=== PATIENT | female | born 1965 | race Caucasian/White ===

== ENCOUNTER 2016-08-11 18:17 | Inpatient (IN) | payer BC, OTHER ==
[~2016-08-11] VITALS: Ht 157.5 cm; Wt 131.0 kg
[~2016-08-11 18:17] MED LIST: BUPR-79 PO; CLC100 PO; INSPMPNVLG; LVNIS40 SQ; METF-384 PO; NVLGI SC; TRAZ1TAB52 PO
[2016-08-11] MEDS ORDERED: SODIUM CHLORIDE 0.9% 1000ML 1,000 ML IV STA (18:44)
[2016-08-11] MEDS ORDERED: KETOROLAC TROMETHAMINE 30 MG/ML VIAL IV STA (18:44)
[2016-08-11] MEDS ORDERED: ALBUT/IPRATROP 3MG/0.5MG NEB 3 ML VIAL INH STA (18:44)
[2016-08-11] MEDS ORDERED: HYDROCODONE/HOMATROPINE SYRUP 5MG/1.5MG 5ML UDP PO STA (18:44)
[2016-08-11] MEDS ORDERED: ONDANSETRON INJ 2 MG/ML 2 ML VIAL IV STA ×2 (18:44→20:28)
[2016-08-11] MEDS ORDERED: METHYLPREDNISOLONE 125 MG VIAL IV STA (18:44)
[2016-08-11 19:21] LABS: BASO % 1.4 %; BASO ABS # 0.06 K/uL (0-0.2); COMPLETE YES; EOS % 2.4 %; HEMATOCRIT 41.3 % (37-47); IG% 0.2 %; LYMPH ABS # 2.02 K/uL (1.2-3.4); MEAN CELL VOLUME 88.2 fL (80-100); MEAN CORPUSCULAR HGB CONC 35.1 g/dl (32-36); MEAN PLATELET VOLUME 10.2 fL (7.4-10.4); MONO % 13.3 %; NEUT % 34.7 %; PLATELET COUNT 252 K/uL (130-400); RED BLOOD COUNT 4.68 M/uL (4.2-5.4); WHITE BLOOD COUNT 4.21 K/uL (4.8-10.8)
[2016-08-11] MEDS ORDERED: ALBUT/IPRATROP 3MG/0.5MG NEB 3 ML VIAL INH ONE (19:30)
[2016-08-11 19:35] LABS: BUN/CREATININE RATIO 8.4 (10-20); CALCIUM 8.7 mg/dl (8.5-10.1); CREATININE 0.98 mg/dl (0.60-1.20); POTASSIUM 3.4 mmol/L (3.5-5.1)
[2016-08-11 19:39] LABS: ALB/GLOB RATIO 0.9 (0.9-2); CKMB/CK RATIO 0.6 (0-3.0)
[2016-08-11] MEDS ORDERED: OPTIRAY 320 IV PRN (19:45)
[2016-08-11] MEDS ORDERED: NVLG SC (20:18)
[2016-08-11] MEDS ORDERED: DIPH-437 PO (20:19)
--- NOTE | 2016-08-11 20:20 | DIAGNOSTIC IMAGING REPORT ---
CHEST 2 VIEWS ROUTINE CLINICAL HISTORY: Respiratory distress. Cough. COMPARISON STUDY: Chest radiograph August 05, 2011. FINDINGS: Lung volumes are normal. There is no consolidation. There is no pneumothorax or pleural effusion. Cardiac size is normal. Mediastinal contours are normal. The appearance of the chest is unchanged. IMPRESSION: No acute cardiopulmonary findings. Electronically signed by: Vishal Zavala M.D. 08/11/2016 8:19 PM Dictated Date/Time: 08/11/2016 8:18 PM
[2016-08-11] MEDS ORDERED: MoRPHine SULFATE 2 MG/ML CARP IV STA (20:28)
--- NOTE | 2016-08-11 21:31 | DIAGNOSTIC IMAGING REPORT ---
CT ANGIOGRAPHY OF THE CHEST, PULMONARY EMBOLUS PROTOCOL CLINICAL HISTORY: Chest pain, shortness of breath, tachycardia and elevated d-dimer. COMPARISON STUDY: Chest CT October 11, 2010. TECHNIQUE: Following IV administration of 95 mL of [id number]-320, helical axial images of the chest were obtained utilizing the pulmonary embolus protocol. Maximal intensity projections and sagittal and coronal reformats were viewed on an independent 3D workstation. IV contrast was administered without complication. CT DOSE: 634.84 mGy.cm FINDINGS: No pulmonary emboli are identified although the segmental and subsegmental pulmonary arteries are suboptimally assessed due to respiratory motion. The heart is mildly enlarged. There is no pericardial effusion. There is no thoracic aortic dissection. There are prominent mediastinal lymph nodes. None are pathologically enlarged. The central airways are patent. No pneumothorax or pleural effusion is present. There is no consolidation. There are mild groundglass opacities with mild mosaic attenuation. The bony thorax and upper abdomen are unremarkable. IMPRESSION: 1. No pulmonary emboli identified although the segmental and subsegmental pulmonary arteries are suboptimally assessed due to respiratory motion. 2. Mild cardiomegaly. 3. Mild groundglass opacities with mosaic attenuation which may reflect air trapping. No consolidation to suggest pneumonia. Electronically signed by: Vishal Zavala M.D. 08/11/2016 9:30 PM Dictated Date/Time: 08/11/2016 9:24 PM
--- NOTE | 2016-08-11 21:45 | EMERGENCY ROOM VISIT NOTE ---
ED Visit Note First contact with patient: 21:45 I have personally seen and evaluated the patient with the physician metal moulder's assistant. I agree with the diagnostic/management decisions and have personally been involved in these decisions and agree with the diagnosis.
[2016-08-11] MEDS ORDERED: PHARMACY GLYCEMIC MGMT CONSULT PRN (22:38)
[2016-08-11] MEDS ORDERED: POTASSIUM CHLORIDE 10 MEQ TABCR PO STA (22:38)
[2016-08-11] MEDS ORDERED: AZITHROMYCIN 250 MG TAB PO STA (22:40)
--- NOTE | 2016-08-11 22:41 | History and Physical ---
History & Physical Date & Time of Service: Aug 11, 2016 at 22:42 Chief Complaint: SOB Primary Care Physician: Jama Torres M.D. History of Present Illness Source: patient Ms. Cisneros is a 51-year-old female with past medical hx of DM insulin dependent , on insulin pump . Asthma , COPD , depression came to ED with complaining of shortness of breath. pt has been having cough like symptom with Upper URI -associated with runny nose, low grade fever , headache had diffuse muscle ache saw her PCP on 08/07/16 at [facility] -ws started on Z Pack for possible Bronchics ; ordered for PRN Inhaler for the last 2 days -her cough was progressively worse to the point she had nausea /vomiting very SOB , Dyspneic with minimum activity pt finished course of Z pack with no improvement of symptom developed persistent dry cough causing bilateral rib pain and midsternal chest pain She describes this as sharp worse with taking deep breath in the ED pt was found to be hypoxic in room Air 88% improved to 95 % with 2 L 02 ( pt is not on home o2 ) CT chest negative for PE ; Mild ground glass opacities with mosaic attenuation which may reflect air trapping. No consolidation to suggest pneumonia. Influenza B flu swab positive Past Medical/Surgical History Medical Problems: (1) Diab Carla Wo Compl, Type Ii Or Unspec Type, Not Uncntrld Status: Chronic (2) Diverticulitis Colon (W/O Ment Of Hemorrhage) Status: Resolved (3) Intestinal Obstruct Nec Status: Resolved (4) Malignant Johnnie Colon Nos Status: Resolved Family History Cancer -Aunt breast cancer Diabetes Brother / Father /Mother / CAD: Brother massive [place]/ Father [place] H Father Lung Disorder /Emphysema Social History Smoking Status: Former Smoker Marital Status: Housing status: lives with family Occupational Status: employed Immunizations History of Influenza Vaccine: N/A Influenza Vaccine Date: May 07, 2008 History of Tetanus Vaccine?: Yes History of Pneumococcal: Yes Pneumococcal Date: May 28, 2010 History of Hepatitis B Vaccine: Yes Multi-Drug Resistant Organisms History of MDRO: No Allergies Coded Allergies: NO KNOWN DRUG ALLERGIES (Verified Allergy, Mild, ., 11/21/15) Nickel (Verified Allergy, Mild, RASH, REDNESS, ITCHY, 11/21/15) Home Medications Scheduled Bupropion (Wellbutrin Sr), 150 MG PO BID Insulin Aspart (novoLOG INSULIN PUMP ), 1 EA N/A UD Metformin Hcl (Glucophage), 1,000 MG PO BID Trazodone Hcl (Desyrel), 150 MG PO HS Scheduled PRN Acetaminophen/Diphenhydramine (Tylenol Pm), 1 TAB PO HS PRN for Sleep Miscellaneous Medications Insulin Aspart (Novolog), SC Review of Systems Constitutional: + chills, + fatigue, + fever, + weakness Eyes: + eye pain Respiratory: + cough, + dyspnea at rest, + dyspnea on exertion, + shortness of breath, + sputum, + wheezing Cardiovascular: + chest pain Abdomen: + diarrhea, + nausea Musculoskeletal: + joint pain, + muscle pain Genitourinary - Female: No dysmenorrhea, No dysuria, No hematuria, No menorrhagia, No metrorrhagia, No , No problem reported, No rash, No urinary frequency, No urinary incontinence, No urinary retention, No urinary urgency, No vaginal bleeding, No vaginal discharge, No vaginal itching, No vulvodynia Neurologic: + vertigo, + weakness Endocrine: + fatigue Physical Exam Vital Signs Date Time Temp Pulse Resp B/P Pulse Ox O2 Delivery O2 Flow Rate FiO2 08/11/16 22:38 97 21 155/77 97 08/11/16 21:25 97 Nasal Cannula 2.0 08/11/16 21:22 96 21 155/77 87 Room Air 08/11/16 19:51 90 23 157/70 100 Nebulizer 08/11/16 19:14 86 08/11/16 18:22 36.9 104 26 140/73 98 Room Air General Appearance: no apparent distress Eyes: normal inspection, PERRL, EOMI, sclerae normal Neck: supple, no carotid bruits, trachea midline Respiratory/Chest: chest non-tender, + respiratory distress, + decreased breath sounds Cardiovascular: regular rate, rhythm, no edema Abdomen/GI: normal bowel sounds, non tender, soft Extremities/Musculoskelatal: normal inspection, no calf tenderness, normal capillary refill, no pedal edema Neurologic/Psych: no motor/sensory deficits, alert, normal mood/affect, oriented x 3 Skin: normal color, warm/dry, no rash Lymphatic: no adenopathy Diagnostics Laboratory Results Results Past 24 Hours Test 08/11/16 19:00 08/11/16 19:12 08/11/16 22:25 Range/Units White Blood Count 4.21 4.8-10.8 K/uL Red Blood Count 4.68 4.2-5.4 M/uL Hemoglobin 14.5 12.0-16.0 g/dL Hematocrit 41.3 37-47 % Mean Corpuscular Volume 88.2 80-100 fL Mean Corpuscular Hemoglobin 31.0 25-34 pg Mean Corpuscular Hemoglobin Concent 35.1 32-36 g/dl Platelet Count 252 130-400 K/uL Mean Platelet Volume 10.2 7.4-10.4 fL Neutrophils (%) (Auto) 34.7 % Lymphocytes (%) (Auto) 48.0 % Monocytes (%) (Auto) 13.3 % Eosinophils (%) (Auto) 2.4 % Basophils (%) (Auto) 1.4 % Neutrophils # (Auto) 1.46 1.4-6.5 K/uL Lymphocytes # (Auto) 2.02 1.2-3.4 K/uL Monocytes # (Auto) 0.56 0.11-0.59 K/uL Eosinophils # (Auto) 0.10 0-0.5 K/uL Basophils # (Auto) 0.06 0-0.2 K/uL RDW Standard Deviation 41.3 36.4-46.3 fL RDW Coefficient of Variation 12.9 11.5-14.5 % Immature Granulocyte % (Auto) 0.2 % Immature Granulocyte # (Auto) 0.01 0.00-0.02 K/uL Sodium Level 137 136-145 mmol/L Potassium Level 3.4 3.5-5.1 mmol/L Chloride Level 100 98-107 mmol/L Carbon Dioxide Level 22 21-32 mmol/L Anion Gap 15.0 3-11 mmol/L Blood Urea Nitrogen 8 7-18 mg/dl Creatinine 0.98 0.60-1.20 mg/dl Est Creatinine Clear Calc Drug Dose 89.0 ml/min Estimated GFR () 78.0 Estimated GFR (Non- 67.3 BUN/Creatinine Ratio 8.4 10-20 Random Glucose 235 70-99 mg/dl Calcium Level 8.7 8.5-10.1 mg/dl Total Bilirubin 0.6 0.2-1 mg/dl Aspartate Amino Transf (AST/SGOT) 35 15-37 U/L Alanine Aminotransferase (ALT/SGPT) 52 12-78 U/L Alkaline Phosphatase 181 45-117 U/L Total Creatine Kinase 165 26-192 U/L Creatine Kinase MB 1.0 0.5-3.6 ng/ml Creatine Kinase MB Ratio 0.6 0-3.0 Total Protein 7.6 6.4-8.2 gm/dl Albumin 3.6 3.4-5.0 gm/dl Globulin 4.0 2.5-4.0 gm/dl Albumin/Globulin Ratio 0.9 0.9-2 Bedside D-Dimer > 450 0-450 ng/mlFEU Bedside Troponin I 0.010 0-0.045 ng/ml Diagnostic Radiology CT ANGIOGRAPHY OF THE CHEST, PULMONARY EMBOLUS PROTOCOL CLINICAL HISTORY: Chest pain, shortness of breath, tachycardia and elevated d-dimer. IMPRESSION: 1. No pulmonary emboli identified although the segmental and subsegmental pulmonary arteries are suboptimally assessed due to respiratory motion. 2. Mild cardiomegaly. 3. Mild groundglass opacities with mosaic attenuation which may reflect air trapping. No consolidation to suggest pneumonia. CHEST 2 VIEWS ROUTINE CLINICAL HISTORY: Respiratory distress. Cough. COMPARISON STUDY: Chest radiograph August 05, 2011. FINDINGS: Lung volumes are normal. There is no consolidation. There is no pneumothorax or pleural effusion. Cardiac size is normal. Mediastinal contours are normal. The appearance of the chest is unchanged. IMPRESSION: No acute cardiopulmonary findings. CXR normal Impression Assessment and Plan ACUTE RESPIRATORY FAILURE : presented with no nonproductive cough , pleuritic chest pain , Hypoxia due to influenza B /URI /bronchitis no Pulmonary embolism noted in CT chest ground glass opacity on base supportive care with 02 supplementation PRN INH /Neb tx empiric abx with Doxycycline ( treated with Z pack as out pt ) INFLUENZA B : pt did not receive Flu shot this year started on Tamiflu complete 5 days course Droplet precaution TYPE 2 DM INSULIN DEPENDENT : on insulin pump Hb A1c 9 on 06/21/2016 BSG > 300 due to above -infection /Flu insulin Pump D/miah ; hold Metformin ordered for Basal Lantus /insulin SSI pharmacy consulted for glycemic control repeat Hb A1c ordered in AM lab DEPRESSION : cont Trazodone HS FULL CODE DVT PROPHYLAXIS : sub q heparin DISPOSITION ; . to home when medically stable Medicine follow up with Dr Torres Level of Care Telemetry Resuscitation Status FULL RESUSCITATION VTE Prophylaxis VTE Risk Assessment Done? Y/N: Yes Risk Level: Moderate Given or contraindicated: Unfractionated heparin SQ Note In my clinical judgment this beneficiary meets acute admission criteria, established by [facility], that includes being hospitalized through two midnights. Additional Copies To Jama Torres M.D.
[2016-08-11] MEDS ORDERED: ACETAMINOPHEN 325 MG TAB PO PRN (22:45)
[2016-08-11] MEDS ORDERED: POLYETHYLENE (MIRALAX) 17 GM PACK PO PRN (22:45)
[2016-08-11] MEDS ORDERED: GLUCAGON FOR INJ 1 MG VIAL SQ PRN (22:45)
[2016-08-11] MEDS ORDERED: GLUCOSE 40% GEL 15 GM TUBE PO PRN (22:45)
[2016-08-11] MEDS ORDERED: GLUCOSE 10 TABS/TUBE PO PRN (22:45)
[2016-08-11] MEDS ORDERED: ACETAMINOPHEN 500 MG TAB PO PRN (22:45)
[2016-08-11] MEDS ORDERED: ALUMINUM/MAGNESIUM/SIMETH (MAALOX MAX) 30 ML UDC PO PRN (22:45)
[2016-08-11] MEDS ORDERED: INSULIN GLARGINE SOLOSTAR 100 UNITS/ML 3 ML PEN SC SCH (22:45)
[2016-08-11] MEDS ORDERED: ONDANSETRON INJ 2 MG/ML 2 ML VIAL IV PRN (22:45)
[2016-08-11] MEDS ORDERED: DEXTROSE 50% 50 ML SYR IV PRN (22:45)
[2016-08-11] MEDS ORDERED: ZOLPIDEM TARTRATE 5 MG TAB PO PRN (22:45)
[2016-08-11] MEDS ORDERED: MAGNESIUM HYDROXIDE SUSP 30 ML UDC PO PRN (22:45)
[2016-08-11] MEDS ORDERED: CEFTRIAXONE SOD INJ 1 GM in DEXTROSE 5% ADD-VANTAGE 50ML 50 ML IV STA (22:49)
[2016-08-11] MEDS: SODIUM CHLORIDE 0.9% 1000ML 1,000 ML IV SCH (22:58)
[2016-08-11] MEDS ORDERED: LEVALBUTEROL 1.25MG/0.5ML NEB INH PRN (23:00)
[2016-08-11] MEDS ORDERED: IPRATROPIUM BROMIDE NEB SOLN 0.02% 2.5 ML VIAL INH PRN (23:00)
[2016-08-11] MEDS ORDERED: OSELTAMIVIR PHOSPHATE 75 MG CAP PO STA (23:54)
[2016-08-11] MEDS ORDERED: INSULIN HUMAN REGULAR PER UNIT 10 UNITS in SYRINGE 9.9 ML IV STA (23:54)
[2016-08-12] VITALS (15 sets, daily range): BP systolic 116–147; BP diastolic 60–85; PULSE 71–96; TEMP 36.4–37; O2SAT 94–99; Ht 157.5 cm; Wt 131.0 kg
[2016-08-12] MEDS ORDERED: LEVALBUTEROL/IPRATROPIUM NEB INH SCH
[2016-08-12] MEDS: LEVALBUTEROL 1.25MG/0.5ML NEB INH SCH ×7 (00:04→23:32)
[2016-08-12] MEDS: IPRATROPIUM BROMIDE NEB SOLN 0.02% 2.5 ML VIAL INH SCH ×7 (00:04→23:32)
[2016-08-12 00:56] LABS: MANUAL MICROSCOPIC REQUIRED? NO; URINE APPEARANCE CLEAR (CLEAR); URINE BILIRUBIN NEG (NEG); URINE COLOR YELLOW; URINE NITRITE NEG (NEG); URINE PH 5.5 (4.5-7.5); URINE SPECIFIC GRAVITY <= 1.005 (1.000-1.030); UROBILINOGEN NEG (NEG)
[2016-08-12] MEDS: BENZONATATE 100MG CAP PO PRN ×2 (00:59→08:15)
[2016-08-12 01:05] LABS: REVIEW REQ? NO
--- NOTE | 2016-08-12 01:58 | EMERGENCY ROOM VISIT NOTE ---
ED Visit Note First contact with patient: 18:29 Chief Complaint: Shortness of breath. History of Present Illness: Ms. Cisneros is a 51-year-old white female who ambulates into the ED accompanied by her complaining of shortness of breath. Historically patient has no significant pulmonary diseases does have a history of colon cancer. Patient reports 2-3 weeks ago she started having what she describes as mild upper respiratory tract symptoms with a runny nose and a mildly productive cough. She reports the symptoms have been using progressively worse. She was seen at her PCPs office 5-6 days ago and was diagnosed with bronchitis. She was placed on Zithromax for antibiotic coverage and was given an inhaler for shortness of breath, but no inhaler spacer. Patient reports over the last 2 days her cough has been getting worse and she is now constant shortness of breath. She has finished her antibiotics and is been using her inhaler as prescribed without relief of her discomfort. Associated with her cough she reports she is experiencing bilateral lateral rib pain and midsternal chest pain. She describes this as sharp. She rates her discomfort 5/10. The pain is nonradiating. The pain increases with cough and palpation. She has not identified any alleviating factors related to the pain. She reports she has not had any medications for pain prior to arrival at the hospital. Associated with her shortness of breath and cough she is also complaining of thoracic back pain, wheezing and fever of 99F. She denies headache, dizziness, lightheadedness, neck pain/stiffness, sore throat, difficulty swallowing, hemoptysis, palpitations, orthopnea, dependent edema, previous clots, claudication, cramping, recent surgery/inactivity/ extended travel. Review of Systems: As noted above in history of present illness. All body systems were reviewed and found to be negative as noted above. Past Medical History: (1) Diab Carla Wo Compl, Type Ii Or Unspec Type, Not Uncntrld (2) Diverticulitis Colon (W/O Ment Of Hemorrhage) (3) Intestinal Obstruct Nec (4) Malignant Johnnie Colon Nos (5) SOB (shortness of breath) Surgical Problems: (1) Status post arthroscopy of left knee Current Medications: Glucophage, insulin, Wellbutrin, Desyrel and Tylenol PM. Allergies to Medications: Patient denies. Social History: Patient is currently employed; she feels safe in her home environment; she is a former smoker but stopped approximately 10 years ago; she admits to rare social use. Physical Examination: Vital Signs: Date Time Temp Pulse Resp B/P Pulse Ox O2 Delivery O2 Flow Rate FiO2 08/11/16 21:25 97 Nasal Cannula 2.0 08/11/16 21:22 96 21 155/77 87 Room Air 08/11/16 19:51 90 23 157/70 100 Nebulizer 08/11/16 19:14 86 08/11/16 18:22 36.9 104 26 140/73 98 Room Air GENERAL: 51-year-old female in moderate distress due to symptoms, nontoxic- appearing, afebrile and hemodynamically stable. NEUROLOGICAL: Awake, alert and oriented to person, place and time. Answering questions appropriately and following commands. Normal gait. Good hand eye coordination. No focal motor sensory deficits. SKIN: Warm, dry and pink. No soft tissue eruptions or trauma noted. HEENT: Atraumatic and normocephalic. PERRLA. Sclera white and conjunctiva pink. No drainage from naris. Oral cavity moist and pink. Pharynx is nonerythematous or edematous. Speech normal. No lymphadenopathy. Trachea midline. No jugular venous distention. BACK: No tenderness over the bony spine. No CVA tenderness. THORAX: Lungs sounds are decreased in all darling with barely audible wheezing in all darling. Symmetrical chest wall. No rales or rhonchi. Moderate tenderness throughout the anterior and bilateral lateral ribs without bony deformity, bony crepitus or subcutaneous air. HEART: Tachycardic rate and rhythm. No gallops, rubs or murmurs are appreciated. ABDOMEN: Obese, soft and nontender. Positive bowel sounds in all quadrants. No guarding, rigidity or organomegaly. EXTREMITIES: Moves all extremities well on command and with purpose. All distal neurovascular statuses are intact and equal bilaterally. No calf tenderness or cords. Trace dependent edema. ED Course: Patient is assessed as noted above. Laboratory Tests Test 08/11/16 19:00 08/11/16 19:12 Range/Units White Blood Count 4.21 4.8-10.8 K/uL Red Blood Count 4.68 4.2-5.4 M/uL Hemoglobin 14.5 12.0-16.0 g/dL Hematocrit 41.3 37-47 % Mean Corpuscular Volume 88.2 80-100 fL Mean Corpuscular Hemoglobin 31.0 25-34 pg Mean Corpuscular Hemoglobin Concent 35.1 32-36 g/dl Platelet Count 252 130-400 K/uL Mean Platelet Volume 10.2 7.4-10.4 fL Neutrophils (%) (Auto) 34.7 % Lymphocytes (%) (Auto) 48.0 % Monocytes (%) (Auto) 13.3 % Eosinophils (%) (Auto) 2.4 % Basophils (%) (Auto) 1.4 % Neutrophils # (Auto) 1.46 1.4-6.5 K/uL Lymphocytes # (Auto) 2.02 1.2-3.4 K/uL Monocytes # (Auto) 0.56 0.11-0.59 K/uL Eosinophils # (Auto) 0.10 0-0.5 K/uL Basophils # (Auto) 0.06 0-0.2 K/uL RDW Standard Deviation 41.3 36.4-46.3 fL RDW Coefficient of Variation 12.9 11.5-14.5 % Immature Granulocyte % (Auto) 0.2 % Immature Granulocyte # (Auto) 0.01 0.00-0.02 K/uL Sodium Level 137 136-145 mmol/L Potassium Level 3.4 3.5-5.1 mmol/L Chloride Level 100 98-107 mmol/L Carbon Dioxide Level 22 21-32 mmol/L Anion Gap 15.0 3-11 mmol/L Blood Urea Nitrogen 8 7-18 mg/dl Creatinine 0.98 0.60-1.20 mg/dl Est Creatinine Clear Calc Drug Dose 89.0 ml/min Estimated GFR () 78.0 Estimated GFR (Non- 67.3 BUN/Creatinine Ratio 8.4 10-20 Random Glucose 235 70-99 mg/dl Calcium Level 8.7 8.5-10.1 mg/dl Total Bilirubin 0.6 0.2-1 mg/dl Aspartate Amino Transf (AST/SGOT) 35 15-37 U/L Alanine Aminotransferase (ALT/SGPT) 52 12-78 U/L Alkaline Phosphatase 181 45-117 U/L Total Creatine Kinase 165 26-192 U/L Creatine Kinase MB 1.0 0.5-3.6 ng/ml Creatine Kinase MB Ratio 0.6 0-3.0 Total Protein 7.6 6.4-8.2 gm/dl Albumin 3.6 3.4-5.0 gm/dl Globulin 4.0 2.5-4.0 gm/dl Albumin/Globulin Ratio 0.9 0.9-2 Bedside D-Dimer > 450 0-450 ng/mlFEU Bedside Troponin I 0.010 0-0.045 ng/ml EKG: Was read by myself and reviewed with Dr. Carpenter; shows normal sinus rhythm with ventricular rate of 94 bpm. Normal axis, intervals and complexes. No acute ST changes indicating ischemia, injury or infarction. This was compared to previous from October 2015 and no acute changes were noted. Chest X-Rays: Were read by myself and the radiologist and shows no acute infiltrates, effusions or pneumothorax. Normal heart silhouette and bony anatomy. This was compared to previous from July 2011 in no acute changes were noted. Chest CTA: Was reviewed by myself and read by the radiologist showing no pulmonary emboli noted, mild cardiomegaly and mild groundglass opacities which may reflect air-trapping. Patient initially received an albuterol/Atrovent nebulizer breathing treatment, was hydrated with normal saline, received 125 mg of Solu-Medrol IV, received 30 mg of Toradol IV for pain, 4 mg of Zofran IV and 10 mL of Hycodan cough syrup. After her breathing treatment she was reassessed and showed improved air movement but still has significant inspiratory and expiratory wheezing in all darling. Patient was then treated with a one hour albuterol/Atrovent nebulizer treatment. She was reassessed after her treatment and subjectively reported she was feeling short of breath. I did listen to her lungs sounds and although she had improved movement she was still tight but no wheezing was no longer heard. Patient was given 2 mg of morphine IV and an additional 4 mg of Zofran for worsening pain and nausea. Patient was reassessed multiple times during her stay in the emergency department. She was observed to be having oxygen saturations of 88-91% and was placed on 2 L of oxygen via nasal cannula; the 2 L of oxygen increased her saturations to 96%. Patient's case was reviewed with Dr. Carpenter; we agreed on diagnostic approach, treatment, disposition and plan. Patient's case was consulted with case management and Dr. Pastor, hospitalist; for medical observation/admission. Patient was educated about tonight's findings. Clinical Impression: Acute bronchitis. Positive for influenza B. Decision-Making: Initially my differential diagnosis I considered pneumonia, bronchitis, pneumothorax, pneumonia, pulmonary embolism, pericarditis and other causes. Disposition and Plan: Patient be brought in the hospital by Dr. Pastor; please see her notes and orders for final disposition and plan.
[2016-08-12] MEDS ORDERED: INSULIN REGULAR 5 UNITS in SYRINGE 4.95 ML IV SCH (03:30)
[2016-08-12] MEDS: GUAIFENESIN/CODEINE 100MG/10MG 5ML UDC PO PRN ×3 (03:46→18:29)
[2016-08-12] MEDS ORDERED: INSULIN HUMAN REGULAR SC SCH ×2 (04:00→06:30)
[2016-08-12] MEDS ORDERED: INSULIN ASPART 100 UNITS/ML 3 ML PEN SC SCH (04:00)
[2016-08-12] MEDS ORDERED: INSULIN REGULAR 4 UNITS in SYRINGE 3.96 ML IV SCH (05:00)
[2016-08-12 05:49] LABS: MEAN CELL VOLUME 86.5 fL (80-100); MEAN CORPUSCULAR HEMOGLOBIN 30.3 pg (25-34); MEAN PLATELET VOLUME 9.6 fL (7.4-10.4); PLATELET COUNT 222 K/uL (130-400); RED BLOOD COUNT 4.16 M/uL (4.2-5.4); WHITE BLOOD COUNT 5.59 K/uL (4.8-10.8)
[2016-08-12 06:00] LABS: PROTHROMBIN TIME (PATIENT) 10.2 SECONDS (9.0-12.0)
[2016-08-12 06:22] LABS: BUN/CREATININE RATIO 13.1 (10-20); CALCIUM 8.1 mg/dl (8.5-10.1); CREATININE 0.74 mg/dl (0.60-1.20); MAGNESIUM 1.8 mg/dl (1.8-2.4); POTASSIUM 3.8 mmol/L (3.5-5.1)
[2016-08-12 06:26] LABS: ESTIMATED AVERAGE GLUCOSE 235 mg/dl; HA1C FLAG Normal (Normal)
[2016-08-12 06:33] LABS: BETA-HYDROXYBUTYRATE 2.17 mg/dL (0.2-2.81)
[2016-08-12] MEDS: SODIUM CHLORIDE 0.9% 1000ML 1,000 ML IV SCH ×2 (08:13→19:39)
[2016-08-12] MEDS: DOXYCYCLINE HYCLATE 100 MG CAP PO SCH ×2 (08:14→19:43)
[2016-08-12] MEDS: OSELTAMIVIR PHOSPHATE 75 MG CAP PO SCH ×2 (08:14→19:42)
[2016-08-12] MEDS: BuPROPion SR 150 MG TABCR PO SCH ×2 (08:16→19:43)
[2016-08-12] MEDS: INSULIN ASPART 100 UNITS/ML 3 ML PEN SC SCH ×5 (08:22→23:49)
[2016-08-12] MEDS: HEPARIN SOD 5000 UNIT/0.5 ML CARP SQ SCH ×2 (08:23→21:01)
[2016-08-12] MEDS ORDERED: INSULIN GLARGINE SOLOSTAR 100 UNITS/ML 3 ML PEN SC SCH (09:00)
--- NOTE | 2016-08-12 10:13 | Pharmacy Progress Note ---
Glycemic Control Intl Consult Date of Service Aug 12, 2016. Scope Glycemic Pharmacist consulted by Dr Pastor on 08/12/16 for glycemic control and to write orders per [facility] inpatient glycemic control protocol Objective Weight (Kilograms): 128.500 Accuchecks BSG (last 24hrs): Test 08/11/16 19:00 08/11/16 23:32 08/12/16 03:05 08/12/16 04:32 Random Glucose 235 mg/dl (70-99) Bedside Glucose 409 mg/dl (70-90) 392 mg/dl (70-90) 355 mg/dl (70-90) Test 08/12/16 05:30 08/12/16 07:42 Random Glucose 332 mg/dl (70-99) Bedside Glucose 295 mg/dl (70-90) Laboratory Data (last 24hrs) Test 08/11/16 19:00 08/12/16 05:30 Anion Gap 15.0 mmol/L 12.0 mmol/L BUN/Creatinine Ratio 8.4 13.1 Blood Urea Nitrogen 8 mg/dl 10 mg/dl Creatinine 0.98 mg/dl 0.74 mg/dl Potassium Level 3.4 mmol/L 3.8 mmol/L Sodium Level 137 mmol/L 138 mmol/L White Blood Count 4.21 K/uL 5.59 K/uL Red Blood Count 4.68 M/uL Hemoglobin 14.5 g/dL Hematocrit 41.3 % Mean Corpuscular Volume 88.2 fL Mean Corpuscular Hemoglobin 31.0 pg Mean Corpuscular Hemoglobin Concent 35.1 g/dl Platelet Count 252 K/uL Mean Platelet Volume 10.2 fL Neutrophils (%) (Auto) 34.7 % Lymphocytes (%) (Auto) 48.0 % Monocytes (%) (Auto) 13.3 % Eosinophils (%) (Auto) 2.4 % Basophils (%) (Auto) 1.4 % Neutrophils # (Auto) 1.46 K/uL Lymphocytes # (Auto) 2.02 K/uL Monocytes # (Auto) 0.56 K/uL Eosinophils # (Auto) 0.10 K/uL Basophils # (Auto) 0.06 K/uL Hemoglobin A1c 9.8 % HbA1c Test 08/12/16 05:30 Hemoglobin A1c 9.8 % (4.5-5.6) H Recent Pertinent Medications Outpatient Anti-diabetic Regimen: * Metformin 1,000mg PO BID * NovoLog Insulin Pump --> up to 40 units/day, although patient has been non- compliant with follow up to [facility] diabetes clinic The patient is currently receiving: * Basal insulin: Lantus 10 units every 12 hours * Correctional Insulin: Novolog Correction per scale ACHS Goal Range: Low 100 mg/dL - High 140 mg/dL Correction Factor: 30 mg/dL/unit * Prandial insulin: Per carb ratio of 1 unit per 15 grams CHO consumed * Oral Agents: On hold for admission Risk Factors for Insulin Resistance: * Steroids: SoluMedrol 125mg IV x 1 in ED * Infection * Diet * Baseline insulin resistance per elevated A1c Assessment & Plan ASSESSMENT: * 51yo T2DM female with poorly controlled diabetes per recent A1c = 9.8% today. Poor outpatient control may be d/t lack of follow up with [facility] diabetes clinic. Pt not returning calls or providing meter BSG readings. * Outpatient insulin regimen/pump held on admission and pt changed to SQ basal bolus insulin regimen for easier titration for acute hyperglycemia. * Per outpatient records, pt uses up to 40 units of insulin per day + metformin. Pt with additional stressors (steroids, infection, etc) therefore, will use weight based dosing and titrate according to BSG trends. * Pt with SEVERE hyperglycemia overnight d/t Solumedrol given in ED --> was treated with IV regular insulin boluses and starting basal/bolus insulin regimen. * BSGs [phone] since last evening * AM fasting BSG elevated this morning @ 295mg/dl --> will increase basal insulin * Will tighten CF/CR to weight based dosing parameters. * ADA & AACE recommend a goal blood sugar range 140-180 mg/dl for the majority of critically ill & non-critically ill patients. However, more stringent targets may be selected in individual cases. Will utilize more stringent goal of 110-140mg/dl based on patient age. PLAN FOR INPATIENT GLYCEMIC CONTROL: * Hold outpatient oral diabetes medications (metformin) + insulin pump & use SQ basal bolus insulin regimen. * Increase Basal insulin with Lantus - dosing based on BSG * If BSG 120mg/dl or below --> give Lantus 15 units * If BSG 121-179mg/dl ---> give Lantus 20 units * If BSG 180mg/dl or above --> give Lantus 25 units * Tighten Correctional Insulin with NOVOLOG per scale ACHS or Q6hrs while NPO. Additional checks + coverage at 0000 & 0400 for RTC hyperglycemia * Goal Range: Low 110 mg/dL - High 140 mg/dL * Correction Factor: 15 mg/dL/unit * Nutritional / Prandial insulin per carb ratio of 1 unit per 5 grams CHO consumed * Please note that the plan above was derived based on current level of insulin resistance and hospital stress. These recommendations are appropriate for inpatient admission only. Plan of care upon discharge will need to be reassessed to avoid potential outpatient hypo/hyperglycemia. Thank you.
--- NOTE | 2016-08-12 11:09 | Progress Note ---
Internal Med Progress Note Date of Service: Aug 12, 2016. Provider Documentation: SUBJECTIVE: The patient was seen and examined Feels a lot better Has ongoing cough OBJECTIVE: Vital Signs-as noted below Exam: General-NO distress at rest Eyes-normal ENT-normal Neck-Supple Lungs-Minimal wheezing ,minimal crackles at the bases Heart-Regular,no murmur appreciated Abdomen-Benign,no masses,bowel sound present Extremities-No edema Neuro-AAOx3 Lab data as noted below. ASSESSMENT & PLAN: ACUTE RESPIRATORY FAILURE : presented with no nonproductive cough , pleuritic chest pain Noted to have Hypoxemia 87% RA,Tachypnea -26,use of accessory muscles of respiration Positive ofr influenza B /URI /bronchitis No Pulmonary embolism noted in CT chest Has ground glass opacity on base Started on Tamiflu and Doxycycline Getting Nebs and Bronchodilators Clinically better INFLUENZA B : pt did not receive Flu shot this year started on Tamiflu complete 5 days course Droplet precaution CXR in AM TYPE 2 DM INSULIN DEPENDENT : Has been on insulin pump Hb A1c 9 on 06/21/2016 BSG > 300 due to above -infection /Flu Hold Metformin Ordered for Basal Lantus /insulin SSI Pharmacy consulted for glycemic control DEPRESSION : cont Trazodone HS FULL CODE DVT PROPHYLAXIS : sub q heparin DISPOSITION ; . to home when medically stable Medicine follow up with Dr Torres Vital Signs: Date Time Temp Pulse Resp B/P Pulse Ox O2 Delivery O2 Flow Rate FiO2 08/12/16 08:00 99 Nasal Cannula 2.0 08/12/16 07:25 36.5 71 18 116/60 99 08/12/16 04:00 Nasal Cannula 2.0 08/12/16 03:47 36.4 88 18 127/76 97 Nasal Cannula 2.0 08/12/16 03:42 77 18 98 Nasal Cannula 2.0 08/12/16 00:04 96 18 94 Nasal Cannula 2.0 08/12/16 00:00 37.0 89 18 133/76 96 Nasal Cannula 2.0 08/11/16 22:38 97 21 155/77 97 08/11/16 21:25 97 Nasal Cannula 2.0 08/11/16 21:22 96 21 155/77 87 Room Air 08/11/16 19:51 90 23 157/70 100 Nebulizer 08/11/16 19:14 86 08/11/16 18:22 36.9 104 26 140/73 98 Room Air Lab Results: Results Past 24 Hours Test 08/11/16 19:00 08/11/16 19:12 08/11/16 22:25 08/11/16 23:32 Range/Units White Blood Count 4.21 4.8-10.8 K/uL Red Blood Count 4.68 4.2-5.4 M/uL Hemoglobin 14.5 12.0-16.0 g/dL Hematocrit 41.3 37-47 % Mean Corpuscular Volume 88.2 80-100 fL Mean Corpuscular Hemoglobin 31.0 25-34 pg Mean Corpuscular Hemoglobin Concent 35.1 32-36 g/dl Platelet Count 252 130-400 K/uL Mean Platelet Volume 10.2 7.4-10.4 fL Neutrophils (%) (Auto) 34.7 % Lymphocytes (%) (Auto) 48.0 % Monocytes (%) (Auto) 13.3 % Eosinophils (%) (Auto) 2.4 % Basophils (%) (Auto) 1.4 % Neutrophils # (Auto) 1.46 1.4-6.5 K/uL Lymphocytes # (Auto) 2.02 1.2-3.4 K/uL Monocytes # (Auto) 0.56 0.11-0.59 K/uL Eosinophils # (Auto) 0.10 0-0.5 K/uL Basophils # (Auto) 0.06 0-0.2 K/uL RDW Standard Deviation 41.3 36.4-46.3 fL RDW Coefficient of Variation 12.9 11.5-14.5 % Immature Granulocyte % (Auto) 0.2 % Immature Granulocyte # (Auto) 0.01 0.00-0.02 K/uL Sodium Level 137 136-145 mmol/L Potassium Level 3.4 3.5-5.1 mmol/L Chloride Level 100 98-107 mmol/L Carbon Dioxide Level 22 21-32 mmol/L Anion Gap 15.0 3-11 mmol/L Blood Urea Nitrogen 8 7-18 mg/dl Creatinine 0.98 0.60-1.20 mg/dl Est Creatinine Clear Calc Drug Dose 89.0 ml/min Estimated GFR () 78.0 Estimated GFR (Non- 67.3 BUN/Creatinine Ratio 8.4 10-20 Random Glucose 235 70-99 mg/dl Calcium Level 8.7 8.5-10.1 mg/dl Total Bilirubin 0.6 0.2-1 mg/dl Aspartate Amino Transf (AST/SGOT) 35 15-37 U/L Alanine Aminotransferase (ALT/SGPT) 52 12-78 U/L Alkaline Phosphatase 181 45-117 U/L Total Creatine Kinase 165 26-192 U/L Creatine Kinase MB 1.0 0.5-3.6 ng/ml Creatine Kinase MB Ratio 0.6 0-3.0 Total Protein 7.6 6.4-8.2 gm/dl Albumin 3.6 3.4-5.0 gm/dl Globulin 4.0 2.5-4.0 gm/dl Albumin/Globulin Ratio 0.9 0.9-2 Bedside D-Dimer > 450 0-450 ng/mlFEU Bedside Troponin I 0.010 0-0.045 ng/ml Influenza Type A Antigen Neg for Influ A NEG Influenza Type B Antigen POS for Influ B NEG Bedside Glucose 409 70-90 mg/dl Test 08/12/16 00:36 08/12/16 03:05 08/12/16 04:32 08/12/16 05:30 Range/Units Urine Color YELLOW Urine Appearance CLEAR CLEAR Urine pH 5.5 4.5-7.5 Urine Specific [place] <= 1.005 1.000-1.030 Urine Protein NEG NEG Urine Glucose (UA) 3+ NEG Urine Ketones 2+ NEG Urine Occult Blood NEG NEG Urine Nitrite NEG NEG Urine Bilirubin NEG NEG Urine Urobilinogen NEG NEG Urine Leukocyte Esterase NEG NEG Bedside Glucose 392 355 70-90 mg/dl White Blood Count 5.59 4.8-10.8 K/uL Red Blood Count 4.16 4.2-5.4 M/uL Hemoglobin 12.6 12.0-16.0 g/dL Hematocrit 36.0 37-47 % Mean Corpuscular Volume 86.5 80-100 fL Mean Corpuscular Hemoglobin 30.3 25-34 pg Mean Corpuscular Hemoglobin Concent 35.0 32-36 g/dl RDW Standard Deviation 41.0 36.4-46.3 fL RDW Coefficient of Variation 12.8 11.5-14.5 % Platelet Count 222 130-400 K/uL Mean Platelet Volume 9.6 7.4-10.4 fL Prothrombin Time 10.2 9.0-12.0 SECONDS Prothromb Time International Ratio 1.0 0.9-1.1 Sodium Level 138 136-145 mmol/L Potassium Level 3.8 3.5-5.1 mmol/L Chloride Level 103 98-107 mmol/L Carbon Dioxide Level 23 21-32 mmol/L Anion Gap 12.0 3-11 mmol/L Blood Urea Nitrogen 10 7-18 mg/dl Creatinine 0.74 0.60-1.20 mg/dl Est Creatinine Clear Calc Drug Dose 117.8 ml/min Estimated GFR () 109.5 Estimated GFR (Non- 94.5 BUN/Creatinine Ratio 13.1 10-20 Random Glucose 332 70-99 mg/dl Estimated Average Glucose 235 mg/dl Hemoglobin A1c 9.8 4.5-5.6 % Calcium Level 8.1 8.5-10.1 mg/dl Magnesium Level 1.8 1.8-2.4 mg/dl Beta-Hydroxybutyric Acid 2.17 0.2-2.81 mg/dL Test 08/12/16 07:42 Range/Units Bedside Glucose 295 70-90 mg/dl Microbiology Results 08/11/16 Blood Culture, Received Pending 08/11/16 Blood Culture, Received Pending
[2016-08-12] MEDS ORDERED: COUGH DROP (SUGAR FREE) LOZ 24 LOZ/1 BOX ONE (18:26)
[2016-08-12] MEDS ORDERED: NURSING VERBAL MED ORDER ONE (18:30)
[2016-08-12] MEDS ORDERED: COUGH DROP (SUGAR FREE) LOZ 24 LOZ/1 BOX PO PRN (18:45)
[2016-08-12] MEDS: TRAZODONE HCL 50 MG TAB PO SCH (19:41)
[2016-08-12] MEDS: INSULIN GLARGINE SOLOSTAR 100 UNITS/ML 3 ML PEN SC SCH (21:03)
[2016-08-12] MEDS ORDERED: DiphenhydrAMINE INJ 25 MG in SYRINGE 0 ML IV PRN (22:45)
[2016-08-12] MEDS ORDERED: DiphenhydrAMINE HCL 50 MG/ML VIAL IV PRN (22:45)
[2016-08-13] VITALS (14 sets, daily range): BP systolic 95–140; BP diastolic 60–83; PULSE 70–89; TEMP 36.4–36.9; O2SAT 93–98
[2016-08-13] MEDS: IPRATROPIUM BROMIDE NEB SOLN 0.02% 2.5 ML VIAL INH SCH ×4 (03:06→17:00)
[2016-08-13] MEDS: LEVALBUTEROL 1.25MG/0.5ML NEB INH SCH ×4 (03:06→17:00)
[2016-08-13] MEDS: INSULIN ASPART 100 UNITS/ML 3 ML PEN SC SCH ×5 (04:00→21:00)
[2016-08-13] MEDS: SODIUM CHLORIDE 0.9% 1000ML 1,000 ML IV SCH (04:44)
[2016-08-13 06:46] LABS: BUN/CREATININE RATIO 18.4 (10-20); CALCIUM 8.1 mg/dl (8.5-10.1); CREATININE 0.58 mg/dl (0.60-1.20); MAGNESIUM 1.9 mg/dl (1.8-2.4); POTASSIUM 3.8 mmol/L (3.5-5.1)
--- NOTE | 2016-08-13 08:07 | DIAGNOSTIC IMAGING REPORT ---
CHEST 2 VIEWS ROUTINE CLINICAL HISTORY: bronchitis/Pneumonia dyspnea COMPARISON STUDY: 08/11/2016 FINDINGS: The bones soft tissues and hemidiaphragms are normal. The cardiomediastinal silhouette is normal. The lungs are clear. The pulmonary vasculature is normal. IMPRESSION: Negative chest. Electronically signed by: Rodrick Martinez M.D. 08/13/2016 8:05 AM Dictated Date/Time: 08/13/2016 8:05 AM
[2016-08-13] MEDS: INSULIN GLARGINE SOLOSTAR 100 UNITS/ML 3 ML PEN SC SCH ×2 (08:42→21:34)
[2016-08-13] MEDS: BuPROPion SR 150 MG TABCR PO SCH ×2 (08:44→21:10)
[2016-08-13] MEDS: OSELTAMIVIR PHOSPHATE 75 MG CAP PO SCH ×2 (08:44→21:00)
[2016-08-13] MEDS: DOXYCYCLINE HYCLATE 100 MG CAP PO SCH (08:45)
[2016-08-13] MEDS: BENZONATATE 100MG CAP PO PRN (08:46)
[2016-08-13] MEDS: HEPARIN SOD 5000 UNIT/0.5 ML CARP SQ SCH ×2 (08:48→21:35)
[2016-08-13] MEDS: GUAIFENESIN/CODEINE 100MG/10MG 5ML UDC PO PRN ×3 (08:48→21:22)
--- NOTE | 2016-08-13 12:07 | Pharmacy Progress Note ---
Glycemic Control: Progress Nt Date of Service Aug 13, 2016. Scope Glycemic Pharmacist consulted by Dr Pastor on 08/12/16 for glycemic control and to write orders per [facility] inpatient glycemic control protocol. Objective Accuchecks BSG (last 24hrs): Test 08/12/16 16:40 08/12/16 20:49 08/12/16 23:45 08/13/16 03:36 Bedside Glucose 249 mg/dl (70-90) 173 mg/dl (70-90) 104 mg/dl (70-90) 104 mg/dl (70-90) Test 08/13/16 05:50 08/13/16 07:50 08/13/16 11:33 Random Glucose 120 mg/dl (70-99) Bedside Glucose 125 mg/dl (70-90) 192 mg/dl (70-90) Laboratory Data (last 24hrs) Test 08/13/16 05:50 Anion Gap 12.0 mmol/L BUN/Creatinine Ratio 18.4 Blood Urea Nitrogen 11 mg/dl Creatinine 0.58 mg/dl Potassium Level 3.8 mmol/L Sodium Level 144 mmol/L HbA1c: Test 08/12/16 05:30 Hemoglobin A1c 9.8 % (4.5-5.6) H Recent Pertinent Medications Outpatient Anti-diabetic Regimen: * Metformin 1,000mg PO BID * NovoLog Insulin Pump --> up to 40 units/day, although patient has been non- compliant with follow up to [facility] diabetes clinic The patient is currently receiving: * Basal insulin: Lantus every 12 hours - dosing based on BSG * 15 units for BSG 120 mg/dl and below * 20 units for BSG 121 mg/dl to 179 mg/dl * 25 units for BSG 181 mg/dl and above * Correctional Insulin: Novolog Correction per scale ACHS Goal Range: Low 110 mg/dL - High 140 mg/dL Correction Factor: 15 mg/dL/unit * Prandial insulin: Per carb ratio of 1 unit per 5 grams CHO consumed * Oral Agents: On hold for admission Risk Factors for Insulin Resistance: * Steroids: SoluMedrol 125mg IV x 1 in ED on 08/11 * Infection * Diet * Baseline insulin resistance per elevated A1c Assessment & Plan ASSESSMENT: * 51yo T2DM female with poorly controlled diabetes per recent A1c = 9.8% today. Poor outpatient control may be d/t lack of follow up with [facility] diabetes clinic. Pt not returning calls or providing meter BSG readings. * Outpatient insulin regimen/pump held on admission and pt changed to SQ basal bolus insulin regimen for easier titration for acute hyperglycemia. * Pt has required ~ 99 units of insulin over the past 24hrs with near-adequate control * BSGs [phone] since increasing insulin regimen yesterday morning. * Anticipate insulin needs to decrease over the next 24hrs as the hyperglycemic effects from solumedrol given on the 12th should be diminishing. Also, Lantus dosing approaching steady state. * Will empirically decrease insulin regimen to prevent hypoglycemia. Will continue with "range based" Lantus dosing per BSG d/t changing factors for insulin resistance. * ADA & AACE recommend a goal blood sugar range 140-180 mg/dl for the majority of critically ill & non-critically ill patients. However, more stringent targets may be selected in individual cases. Will utilize more stringent goal of 110-140mg/dl based on patient age. PLAN FOR INPATIENT GLYCEMIC CONTROL: * Hold outpatient oral diabetes medications (metformin) + insulin pump & use SQ basal bolus insulin regimen. * Decrease Basal insulin with Lantus - dosing based on BSG * If BSG 120mg/dl or below --> give Lantus 10 units * If BSG 121-179mg/dl ---> give Lantus 15 units * If BSG 180mg/dl or above --> give Lantus 20 units * Loosen Correctional Insulin with NOVOLOG per scale ACHS or Q6hrs while NPO * Goal Range: Low 110 mg/dL - High 140 mg/dL * Correction Factor: 20 mg/dL/unit * Nutritional / Prandial insulin per carb ratio of 1 unit per 6 grams CHO consumed * Please note that the plan above was derived based on current level of insulin resistance and hospital stress. These recommendations are appropriate for inpatient admission only. Plan of care upon discharge will need to be reassessed to avoid potential outpatient hypo/hyperglycemia. Thank you.
--- NOTE | 2016-08-13 13:29 | Progress Note ---
Medicine Progress Note Date & Time of Visit: Aug 13, 2016 at 13:23. Subjective seen resting in bed appears comfortable states breathing is improved but still has dyspnea with minimal exertion cough is nonproductive, also improving denies other symptoms Objective Last 8 Hrs Date Time Temp Pulse Resp B/P Pulse Ox O2 Delivery O2 Flow Rate FiO2 08/13/16 11:29 89 16 98 Room Air 08/13/16 11:07 36.4 70 18 113/74 95 Room Air 08/13/16 08:00 97 Room Air 08/13/16 07:05 78 16 97 Room Air 08/13/16 07:02 36.6 87 17 95/60 97 Nasal Cannula 2.0 Physical Exam: General- oriented x 3, not in distress, speaks in sentences with no effort Head- atraumatic Eyes- anicteric ENT- oropharynx clear Neck- supple, no JVD, no adenopathy Lungs- mild diffuse expiratory wheezing b/l, no crackles Heart-normal rate, regular rhythm; no murmurs Abdomen- normal bowel sounds, soft, nontender Extremities- no pretibial edema, no calf tenderness Neuro- alert, oriented x 3; no gross focal deficits Skin- warm & dry Laboratory Results: Last 24 Hours Test 08/12/16 16:40 08/12/16 20:49 08/12/16 23:45 08/13/16 03:36 Bedside Glucose 249 mg/dl 173 mg/dl 104 mg/dl 104 mg/dl Test 08/13/16 05:50 08/13/16 07:50 08/13/16 11:33 Sodium Level 144 mmol/L Potassium Level 3.8 mmol/L Chloride Level 109 mmol/L Carbon Dioxide Level 23 mmol/L Anion Gap 12.0 mmol/L Blood Urea Nitrogen 11 mg/dl Creatinine 0.58 mg/dl Est Creatinine Clear Calc Drug Dose 149.2 ml/min Estimated GFR () 124.6 Estimated GFR (Non- 107.5 BUN/Creatinine Ratio 18.4 Random Glucose 120 mg/dl Calcium Level 8.1 mg/dl Magnesium Level 1.9 mg/dl Bedside Glucose 125 mg/dl 192 mg/dl Date/Time Source Procedure Growth Status 08/13/16 10:40 Sputum Expectorated Sputum Gram Stain - Final Resulted 08/13/16 10:40 Sputum Expectorated Sputum Sputum Culture Pending Resulted Assessment & Plan ACUTE RESPIRATORY FAILURE, ACUTE BRONCHITIS WITH INFLUENZA B INFECTION presented with no nonproductive cough , pleuritic chest pain Noted to have Hypoxemia 87% RA,Tachypnea -26,use of accessory muscles of respiration Positive ofr influenza B /URI /bronchitis No Pulmonary embolism noted in CT chest - 08/13/16 Repeat CXR: no Pneumonia - continue Tamiflu, Doxycycline BID add Prednisone 40mg, then slowly taper continue Nebs q4h may need 2 step exercise test prior to discharge INFLUENZA B : pt did not receive Flu shot this year Droplet precaution -- continue Tamiflu TYPE 2 DM INSULIN DEPENDENT : Has been on insulin pump Hb A1c 9 on 06/21/2016 BSG > 300 due to above -infection /Flu Hold Metformin -- Pharmacy on board for Insulin Management DEPRESSION : cont Trazodone HS FULL CODE DVT PROPHYLAXIS : sub q heparin DISPOSITION ; . possible d/c home in AM Current Inpatient Medications: Current Inpatient Medications Medications (Trade) Dose Ordered Sig/Anmol Route Start Time Stop Time Status Last Admin Dose Admin Ioversol (Optiray 320) 125 ml UD PRN IV 08/11/16 19:45 08/15/16 19:44 Bupropion HCl (Wellbutrin-Sr Tab) 150 mg BID PO 08/12/16 09:00 09/11/16 08:59 08/13/16 08:44 150 MG Trazodone HCl (Desyrel Tab) 150 mg HS PO 08/12/16 21:00 09/11/16 20:59 08/12/16 19:41 150 MG Acetaminophen (Tylenol Tab) 500 mg HS PRN PO 08/11/16 22:45 09/10/16 22:44 Miscellaneous Information (Consult Glycemic Management Pharmacy) 1 ea DAILY PRN N/A 08/11/16 22:38 09/10/16 22:37 Heparin Sodium (Porcine) 5000 unit 5,000 unit Q12 SQ 08/12/16 09:00 09/11/16 08:59 08/12/16 21:01 5,000 UNIT Sodium Chloride (Nss 1000ml) 1,000 ml @ 100 mls/hr Q10H IV 08/11/16 22:36 08/13/16 04:44 100 MLS/HR Acetaminophen (Tylenol Tab) 650 mg Q4H PRN PO 08/11/16 22:45 09/10/16 22:44 Al Hydrox/Mg Hydrox/Simethicone (Maalox Max Susp) 15 ml Q4H PRN PO 08/11/16 22:45 09/10/16 22:44 Magnesium Hydroxide (Milk Of Magnesia Susp) 30 ml Q12H PRN PO 08/11/16 22:45 09/10/16 22:44 Zolpidem Tartrate (Ambien Tab) 5 mg HSZ PRN PO 08/11/16 22:45 09/10/16 22:44 Ondansetron HCl (Zofran Inj) 4 mg Q6H PRN IV 08/11/16 22:45 09/10/16 22:44 Polyethylene (Miralax Powder Packet) 17 gm DAILY PRN PO 08/11/16 22:45 09/10/16 22:44 Glucose (Glucose 40% Gel) 15-30 GRAMS 15 GRAMS... UD PRN PO 08/11/16 22:45 09/10/16 22:44 Glucose (Glucose Chew Tab) 4-8 Tablets 4 Tabl... UD PRN PO 08/11/16 22:45 09/10/16 22:44 Dextrose (Dextrose 50% 50ML Syringe) 25-50ML OF 50% DW IV FOR... UD PRN IV 08/11/16 22:45 09/10/16 22:44 Glucagon (Glucagon Inj) 1 mg UD PRN SQ 08/11/16 22:45 09/10/16 22:44 Diphenhydramine HCl (Benadryl Cap) 25 mg HS PRN PO 08/11/16 22:45 09/10/16 22:44 Ipratropium [place] (Atrovent 0.02% 0.5MG/2.5ML Neb) 0.5 mg Q4R INH 08/12/16 00:00 09/11/16 00:00 08/13/16 11:29 0.5 MG Levalbuterol (Xopenex 1.25MG/ 0.5ML Neb) 1.25 mg Q4R INH 08/12/16 00:00 09/11/16 00:00 08/13/16 11:29 1.25 MG Ipratropium [place] (Atrovent 0.02% 0.5MG/2.5ML Neb) 0.5 mg Q2H PRN INH 08/11/16 23:00 09/10/16 22:59 Levalbuterol (Xopenex 1.25MG/ 0.5ML Neb) 1.25 mg Q2H PRN INH 08/11/16 23:00 09/10/16 22:59 Oseltamivir Phosphate (Tamiflu Cap) 75 mg BID PO 08/12/16 09:00 08/17/16 08:59 08/13/16 08:44 75 MG Benzonatate (Tessalon Perles Cap) 100 mg Q4 PRN PO 08/12/16 00:30 09/11/16 00:29 08/13/16 08:46 100 MG Codeine Phosphate/ Guaifenesin (Robitussin-AC Sugar Free Syrup) 5 ml Q6H PRN PO 08/12/16 00:30 09/11/16 00:29 08/13/16 08:48 5 ML Insulin Aspart (novoLOG ASPART) SLIDING SCAL... ACHS SC 08/12/16 06:30 09/11/16 06:29 08/13/16 12:59 9 UNITS Doxycycline Hyclate (Vibramycin Cap) 100 mg BID PO 08/12/16 09:00 08/19/16 08:59 08/13/16 08:45 100 MG Insulin Glargine (Lantus Solostar Pen) see protocol text Q12 SC 08/12/16 21:00 09/11/16 20:59 08/13/16 08:42 15 UNIT Menthol (Nice Wojciech) 1 wojciech PRN PRN PO 08/12/16 18:45 09/11/16 18:44 Diphenhydramine HCl (Benadryl Inj) 25 mg Q6H PRN IV 08/12/16 22:45 09/11/16 22:44 08/12/16 22:42 25 MG
[2016-08-13] MEDS ORDERED: LEVOFLOXACIN 500 MG TAB PO ONE (17:45)
[2016-08-13] MEDS: IPRATROPIUM BROMIDE HFA INHALER INH SCH (21:09)
[2016-08-13] MEDS: LEValbuterol HFA 15GM INHALER INH SCH (21:09)
[2016-08-13] MEDS: TRAZODONE HCL 50 MG TAB PO SCH (21:47)
[2016-08-14] VITALS (7 sets, daily range): BP systolic 113–142; BP diastolic 75–89; PULSE 75–88; TEMP 36.5–36.8; O2SAT 93–96
[2016-08-14] MEDS: LEValbuterol HFA 15GM INHALER INH SCH ×5 (00:12→17:24)
[2016-08-14] MEDS: IPRATROPIUM BROMIDE HFA INHALER INH SCH ×5 (00:14→17:24)
[2016-08-14 07:11] LABS: BUN/CREATININE RATIO 17.9 (10-20); CALCIUM 8.6 mg/dl (8.5-10.1); CREATININE 0.66 mg/dl (0.60-1.20); POTASSIUM 3.9 mmol/L (3.5-5.1)
[2016-08-14] MEDS: BuPROPion SR 150 MG TABCR PO SCH (08:06)
[2016-08-14] MEDS: OSELTAMIVIR PHOSPHATE 75 MG CAP PO SCH ×2 (08:06→17:24)
[2016-08-14] MEDS: INSULIN ASPART 100 UNITS/ML 3 ML PEN SC SCH ×3 (08:47→17:27)
[2016-08-14] MEDS: INSULIN GLARGINE SOLOSTAR 100 UNITS/ML 3 ML PEN SC SCH (08:47)
[2016-08-14] MEDS: HEPARIN SOD 5000 UNIT/0.5 ML CARP SQ SCH (08:48)
--- NOTE | 2016-08-14 10:14 | Pharmacy Progress Note ---
Glycemic Control: Progress Nt Date of Service Aug 14, 2016. Scope Glycemic Pharmacist consulted for glycemic control and to write orders per [facility] inpatient glycemic control protocol. Objective Accuchecks BSG (last 24hrs): Test 08/13/16 11:33 08/13/16 16:39 08/13/16 20:16 08/14/16 05:50 Bedside Glucose 192 mg/dl (70-90) 181 mg/dl (70-90) 301 mg/dl (70-90) Random Glucose 242 mg/dl (70-99) Test 08/14/16 07:29 Bedside Glucose 238 mg/dl (70-90) Laboratory Data (last 24hrs) Test 08/14/16 05:50 Anion Gap 10.0 mmol/L BUN/Creatinine Ratio 17.9 Blood Urea Nitrogen 12 mg/dl Creatinine 0.66 mg/dl Potassium Level 3.9 mmol/L Sodium Level 139 mmol/L HbA1c: Test 08/12/16 05:30 Hemoglobin A1c 9.8 % (4.5-5.6) H Recent Pertinent Medications Outpatient Anti-diabetic Regimen: * Metformin 1,000mg PO BID * NovoLog Insulin Pump --> up to 40 units/day, although patient has been non- compliant with follow up to [facility] clinic The patient is currently receiving: * Basal insulin: Lantus every 12 hours - dosing based on BSG * 10 units for BSG 120 mg/dl and below * 15 units for BSG 121 mg/dl to 179 mg/dl * 20 units for BSG 181 mg/dl and above * Correctional Insulin: Novolog Correction per scale ACHS Goal Range: Low 110 mg/dL - High 140 mg/dL Correction Factor: 20 mg/dL/unit * Prandial insulin: Per carb ratio of 1 unit per 6 grams CHO consumed * Oral Agents: On hold for admission Risk Factors for Insulin Resistance: * Steroids: SoluMedrol 125mg IV x 1 in ED on 08/11. Started Prednisone yesterday * Infection * Diet * Baseline insulin resistance per elevated A1c Assessment & Plan ASSESSMENT: * 51yo T2DM female with poorly controlled diabetes per recent A1c = 9.8% today. Poor outpatient control may be d/t lack of follow up with [facility] diabetes clinic. Pt not returning calls or providing meter BSG readings. * Outpatient insulin regimen/pump held on admission and pt changed to SQ basal bolus insulin regimen for easier titration for acute hyperglycemia. * Pt has required ~ 70 units of insulin over the past 24hrs with near-adequate control * BSGs initially in range at [phone] but then increased up to 301 at bedtime after receiving first dose of Prednisone 40mg. * Anticipate increased insulin needs with prednisone, but insulin needs will decrease with each step down in steroid dosing. * Steroids have their most profound effect on post-prandial hyperglycemia - will tighten bolus insulin parameters accordingly. * Abx changed to PO, pt nearing discharge, will resume outpatient oral antidiabetic medications. Of note, pt received contrast on 06/10 but OK to resume metformin as it is +48hrs after contrast. * ADA & AACE recommend a goal blood sugar range 140-180 mg/dl for the majority of critically ill & non-critically ill patients. However, more stringent targets may be selected in individual cases. Will utilize more stringent goal of 110-140mg/dl based on patient age. PLAN FOR INPATIENT GLYCEMIC CONTROL: * Hold outpatient insulin pump & use SQ basal bolus insulin regimen. Continue to titrate regimen based on prednisone dosing and BSG trends. * Resume Metformin 1,000mg PO BIDM * No Changes to Basal insulin with Lantus - dosing based on BSG * If BSG 120mg/dl or below --> give Lantus 10 units * If BSG 121-179mg/dl ---> give Lantus 15 units * If BSG 180mg/dl or above --> give Lantus 20 units * Tighten Correctional Insulin with NOVOLOG per scale ACHS or Q6hrs while NPO * Goal Range: Low 110 mg/dL - High 140 mg/dL * Correction Factor: 15 mg/dL/unit * Nutritional / Prandial insulin per carb ratio of 1 unit per 5 grams CHO consumed * Please note that the plan above was derived based on current level of insulin resistance and hospital stress. These recommendations are appropriate for inpatient admission only. Plan of care upon discharge will need to be reassessed to avoid potential outpatient hypo/hyperglycemia. Thank you.
[2016-08-14] MEDS ORDERED: LEVOFLOXACIN 500 MG TAB PO SCH (11:00)
[2016-08-14] MEDS ORDERED: METFORMIN HCL 500 MG TABCR PO SCH (11:30)
--- NOTE | 2016-08-14 16:51 | DIAGNOSTIC IMAGING REPORT ---
BILATERAL LOWER EXTREMITY VENOUS DOPPLER HISTORY: Pain. Edema. r/o dv COMPARISON STUDY: None. FINDINGS: There is normal compressibility, flow, and augmentation within the bilateral lower extremity deep venous systems. IMPRESSION: No DVT within the right or left lower extremity. Electronically signed by: Rodrick Martinez M.D. 08/14/2016 4:49 PM Dictated Date/Time: 08/14/2016 4:49 PM
--- NOTE | 2016-08-14 17:24 | Progress Note ---
Medicine Progress Note Date & Time of Visit: Aug 14, 2016 at 17:14. Subjective patient seen resting in bed, more comfortable, in good spirits cough is less breathing is better, no dyspnea no fever/chills denies other symptoms states she is ready and would like to be discharged today Objective Last 8 Hrs Date Time Temp Pulse Resp B/P Pulse Ox O2 Delivery O2 Flow Rate FiO2 08/14/16 16:30 Room Air 08/14/16 16:04 36.8 75 113/76 96 08/14/16 12:15 Room Air 08/14/16 11:26 36.7 75 18 128/81 96 Room Air Physical Exam: General- oriented x 3, not in distress, speaks in sentences with no effort Eyes- anicteric Neck- supple, no JVD Lungs-clear breath sounds bilaterally, no rales/wheezing Heart-normal rate, regular rhythm; no murmurs Abdomen- normal bowel sounds, soft, nontender Extremities- no pretibial edema, no calf tenderness Neuro- alert, oriented x 3; no gross focal deficits Skin- warm & dry Laboratory Results: Last 24 Hours Test 08/13/16 20:16 08/14/16 05:50 08/14/16 07:29 08/14/16 11:50 Bedside Glucose 301 mg/dl 238 mg/dl 177 mg/dl Sodium Level 139 mmol/L Potassium Level 3.9 mmol/L Chloride Level 104 mmol/L Carbon Dioxide Level 25 mmol/L Anion Gap 10.0 mmol/L Blood Urea Nitrogen 12 mg/dl Creatinine 0.66 mg/dl Est Creatinine Clear Calc Drug Dose 132.8 ml/min Estimated GFR () 119.4 Estimated GFR (Non- 103.0 BUN/Creatinine Ratio 17.9 Random Glucose 242 mg/dl Calcium Level 8.6 mg/dl Magnesium Level 2.0 mg/dl Test 08/14/16 17:01 Bedside Glucose 319 mg/dl Assessment & Plan ACUTE RESPIRATORY FAILURE, SECONDARY TO ACUTE BRONCHITIS WITH INFLUENZA B INFECTION - presented with no nonproductive cough , pleuritic chest pain Hypoxemia 87% RA,Tachypnea -26,use of accessory muscles of respiration - Positive for influenza B CT chest: no PE, no pneumonia 08/13/16 Repeat CXR: no Pneumonia - received Tamiflu x 3 days Doxycycline x 2 days, stopped due to facial flushing Levaquin 500mg PO x 2 days Prednisone 40mg PO x 2 days Levalbuterol, Atrovent q4h - improved clinically, no dyspnea on ambulation hypoxemia resolved - discharge on: Tamiflu x 2 more days to complete 5 days Levaquin x 3 more days to complete 5 days Prednisone taper Levalbuterol, Atrovent QID - ff up with PCP in 3-5 days ELEVATED D DIMER >450 CT chest: no PE Doppler US of the legs: no PE -- likely from Infection TYPE 2 DM INSULIN DEPENDENT : Has been on insulin pump Hb A1c 9 on 06/21/2016 BSG > 300 due to above -infection -- Pharmacy consulted for Insulin Management -- resume Insulin Pump and Metformin on discharge DEPRESSION: cont Trazodone HS DVT PROPHYLAXIS: sub q heparin given DISPOSITION ; . d/c home today ff up with PCP in 5-7 days Current Inpatient Medications: Current Inpatient Medications Medications (Trade) Dose Ordered Sig/Anmol Route Start Time Stop Time Status Last Admin Dose Admin Ioversol (Optiray 320) 125 ml UD PRN IV 08/11/16 19:45 08/15/16 19:44 Bupropion HCl (Wellbutrin-Sr Tab) 150 mg BID PO 08/12/16 09:00 09/11/16 08:59 08/14/16 08:06 150 MG Trazodone HCl (Desyrel Tab) 150 mg HS PO 08/12/16 21:00 09/11/16 20:59 08/13/16 21:47 150 MG Acetaminophen (Tylenol Tab) 500 mg HS PRN PO 08/11/16 22:45 09/10/16 22:44 Miscellaneous Information (Consult Glycemic Management Pharmacy) 1 ea DAILY PRN N/A 08/11/16 22:38 09/10/16 22:37 Heparin Sodium (Porcine) (Heparin Sq 5000 Unit/0.5ml) 5,000 unit Q12 SQ 08/12/16 09:00 09/11/16 08:59 08/14/16 08:48 5,000 UNIT Acetaminophen (Tylenol Tab) 650 mg Q4H PRN PO 08/11/16 22:45 09/10/16 22:44 Al Hydrox/Mg Hydrox/Simethicone (Maalox Max Susp) 15 ml Q4H PRN PO 08/11/16 22:45 09/10/16 22:44 Magnesium Hydroxide (Milk Of Magnesia Susp) 30 ml Q12H PRN PO 08/11/16 22:45 09/10/16 22:44 Zolpidem Tartrate (Ambien Tab) 5 mg HSZ PRN PO 08/11/16 22:45 09/10/16 22:44 08/13/16 23:33 5 MG Ondansetron HCl (Zofran Inj) 4 mg Q6H PRN IV 08/11/16 22:45 09/10/16 22:44 Polyethylene (Miralax Powder Packet) 17 gm DAILY PRN PO 08/11/16 22:45 09/10/16 22:44 Glucose (Glucose 40% Gel) 15-30 GRAMS 15 GRAMS... UD PRN PO 08/11/16 22:45 09/10/16 22:44 Glucose (Glucose Chew Tab) 4-8 Tablets 4 Tabl... UD PRN PO 08/11/16 22:45 09/10/16 22:44 Dextrose (Dextrose 50% 50ML Syringe) 25-50ML OF 50% DW IV FOR... UD PRN IV 08/11/16 22:45 09/10/16 22:44 Glucagon (Glucagon Inj) 1 mg UD PRN SQ 08/11/16 22:45 09/10/16 22:44 Diphenhydramine HCl (Benadryl Cap) 25 mg HS PRN PO 08/11/16 22:45 09/10/16 22:44 08/13/16 21:22 25 MG Oseltamivir Phosphate (Tamiflu Cap) 75 mg BID PO 08/12/16 09:00 08/17/16 08:59 08/14/16 08:06 75 MG Benzonatate (Tessalon Perles Cap) 100 mg Q4 PRN PO 08/12/16 00:30 09/11/16 00:29 08/13/16 08:46 100 MG Codeine Phosphate/ Guaifenesin (Robitussin-AC Sugar Free Syrup) 5 ml Q6H PRN PO 08/12/16 00:30 09/11/16 00:29 08/13/16 21:22 5 ML Insulin Aspart (novoLOG ASPART) SLIDING SCAL... ACHS SC 08/12/16 06:30 09/11/16 06:29 08/14/16 12:24 14 UNITS Insulin Glargine (Lantus Solostar Pen) see protocol text Q12 SC 08/12/16 21:00 09/11/16 20:59 08/14/16 08:47 20 UNIT Menthol (Nice Wojciech) 1 wojciech PRN PRN PO 08/12/16 18:45 09/11/16 18:44 Diphenhydramine HCl (Benadryl Inj) 25 mg Q6H PRN IV 08/12/16 22:45 09/11/16 22:44 08/12/16 22:42 25 MG Prednisone (PredniSONE TAB) 40 mg DAILY PO 08/14/16 09:00 09/13/16 08:59 08/14/16 08:06 40 MG Levofloxacin (Levaquin Tab) 500 mg DAILY@11 PO 08/14/16 11:00 08/20/16 10:59 08/14/16 08:06 500 MG Ipratropium Ord (Atrovent Hfa Inhaler) 2 puffs Q4 INH 08/13/16 20:00 09/12/16 19:59 08/14/16 11:34 2 PUFFS Levalbuterol (Xopenex Hfa Inhaler) 2 puffs Q4 INH 08/13/16 20:00 09/12/16 19:59 08/14/16 11:34 2 PUFFS Metformin HCl (Glucophage Extended Rel Tab) 1,000 mg BIDM PO 08/14/16 11:30 09/13/16 11:29 08/14/16 11:33 1,000 MG
[2016-08-14] MEDS ORDERED: GUAISYP4 PO (17:31)
[2016-08-14] MEDS ORDERED: TMF75 PO (17:31)
[2016-08-14] MEDS ORDERED: LVQ500 PO (17:31)
[2016-08-14] MEDS ORDERED: ATRIN INH (17:31)
[2016-08-14] MEDS ORDERED: Levalbuterol INH (17:31)
[2016-08-14] MEDS ORDERED: PRED10TA PO (17:31)
--- NOTE | 2016-08-14 17:38 | Discharge Instructions ---
Discharge Instructions Admission Reason for Admission: SOB Discharge Discharge Diagnosis / Problem: INFLUENZA B INFECTION WITH ACUTE BRONCHITIS Discharge Goals Goal(s): Diagnostic testing, Therapeutic intervention Activity Recommendations Activity Limitations: as noted below (NO HEAVY EXERTION UNTIL RE-EVALUATED BY PRIMARY CARE PHYSICIAN) . Instructions / Follow-Up Instructions / Follow-Up PLEASE REVIEW YOUR MEDICATION LIST AND FOLLOW INSTRUCTIONS CAREFULLY. MONITOR BLOOD GLUCOSE CLOSELY IT MAY RISE DUE TO INTAKE OF PREDNISONE. CALL PRIMARY CARE PHYSICIAN IF WITH BLOOD GLUCOSE GREATER THAN 300. CALL PRIMARY CARE PHYSICIAN OR RETURN TO ER IMMEDIATELY IF WITH RETURN OR WORSENING OF SYMPTOMS. TAKE PLENTY OF FLUIDS AND REST. FOLLOW UP WITH DR. DELACRUZ ON SATURDAY AUGUST 20, 2016 AT 1:20PM. Current Hospital Diet Patient's current hospital diet: Diabetes Type 2 Diet Discharge Diet Recommended Diet: Diabetes Type 2 Diet Pending Studies Studies pending at discharge: no Laboratory Results Hemoglobin A1c Test 08/12/16 05:30 Range/Units Estimated Average Glucose 235 mg/dl Hemoglobin A1c 9.8 H 4.5-5.6 % Medical Emergencies . Who to Call and When: Medical Emergencies: If at any time you feel your situation is an emergency, please call 911 immediately. . Non-Emergent Contact Non-Emergency issues call your: Primary Care Provider . Past History Medical & Surgical History: (1) Diab Carla Wo Compl, Type Ii Or Unspec Type, Not Uncntrld (2) Diverticulitis Colon (W/O Ment Of Hemorrhage) (3) Intestinal Obstruct Nec (4) Malignant Johnnie Colon Nos (5) Status post arthroscopy of left knee . "Provider Documentation" section prepared by Ahmet Jauregui. VTE Core Measure Inpt VTE Proph given/why not?: Unfractionated heparin SQ
--- NOTE | 2016-08-14 17:44 | Discharge Summary ---
Discharge Summary Admission Date: Aug 11, 2016 at 21:52 Discharge Date: Aug 14, 2016 Discharge Disposition: Home Principal Diagnosis: ACUTE RESPIRATORY FAILURE, SECONDARY TO ACUTE BRONCHITIS WITH INFLUENZA B INFECTION Secondary Diagnoses/Problems: PLEASE REFER TO HOSPITAL COURSE BELOW. Medication Reconciliation New Medications: Prednisone Tab (Prednisone) 10 Mg Tab 10 MG PO UD, #13 TAB take 3 tabs po daily x 2 days, then take 2 tabs po daily x 2 days, then take 1 tab po daily x 2 days, then take 1/2 tab po daily x 2 days, then STOP Guaifenesin/Codeine (Robitussin-Ac Syrup) Syrp 5 ML PO Q6H PRN for Cough, #100 ML 0 Refills Ipratropium [place] (Atrovent Hfa) 200 Puffs/3400 Mcg Aers 2 PUFFS INH QID for 7 Days, #1 INHALER 2 Refills may also use q4h PRN for shortness of breath/wheezing Levofloxacin (Levofloxacin) 500 Mg Tab 500 MG PO DAILY@11 for 3 Days, #3 TAB 0 Refills Oseltamivir Phosphate (Tamiflu) 75 Mg Cap 75 MG PO BID for 2 Days, #4 CAP 0 Refills [Levalbuterol] () 1 INH 2 PUFFS INH QID for 7 Days, #1 INHALER 2 Refills may also use q4h PRN for shortness of breath/wheezing Continued Medications: Acetaminophen/Diphenhydramine (Tylenol Pm) 500 Mg/25 Mg Tab 1 TAB PO HS PRN for Sleep, TAB Bupropion (Wellbutrin Sr) 150 Mg Ertab 150 MG PO BID, TAB Insulin Aspart (novoLOG INSULIN PUMP ) 1 Ea Inj 1 EA N/A UD, EA BASAL RATE 0.85 Insulin Aspart (Novolog) 100 Units/Ml Inj SC SLIDING SCALE Metformin Hcl (Glucophage) 1,000 Mg Tab 1000 MG PO BID, TAB Trazodone Hcl (Desyrel) 150 Mg Tab 150 MG PO HS, TAB Admission Information HPI (per Admitting provider): Ms. Cisneros is a 51-year-old female with past medical hx of DM insulin dependent , on insulin pump . Asthma , COPD , depression came to ED with complaining of shortness of breath. pt has been having cough like symptom with Upper URI -associated with runny nose, low grade fever , headache had diffuse muscle ache saw her PCP on 08/07/16 at [facility] -ws started on Z Pack for possible Bronchics ; ordered for PRN Inhaler for the last 2 days -her cough was progressively worse to the point she had nausea /vomiting very SOB , Dyspneic with minimum activity pt finished course of Z pack with no improvement of symptom developed persistent dry cough causing bilateral rib pain and midsternal chest pain She describes this as sharp worse with taking deep breath in the ED pt was found to be hypoxic in room Air 88% improved to 95 % with 2 L 02 ( pt is not on home o2 ) CT chest negative for PE ; Mild ground glass opacities with mosaic attenuation which may reflect air trapping. No consolidation to suggest pneumonia. Influenza B flu swab positive Physical Exam (per Admitting): General Appearance: no apparent distress Eyes: normal inspection, PERRL, EOMI, sclerae normal Neck: supple, no carotid bruits, trachea midline Respiratory/Chest: chest non-tender, + respiratory distress, + decreased breath sounds Cardiovascular: regular rate, rhythm, no edema Abdomen/GI: normal bowel sounds, non tender, soft Extremities/Musculoskelatal: normal inspection, no calf tenderness, normal capillary refill, no pedal edema Neurologic/Psych: no motor/sensory deficits, alert, normal mood/affect, oriented x 3 Skin: normal color, warm/dry, no rash Lymphatic: no adenopathy Hospital Course ACUTE RESPIRATORY FAILURE, SECONDARY TO ACUTE BRONCHITIS WITH INFLUENZA B INFECTION - presented with no nonproductive cough , pleuritic chest pain Hypoxemia 87% RA,Tachypnea -26,use of accessory muscles of respiration - Positive for influenza B CT chest: no PE, no pneumonia 08/13/16 Repeat CXR: no Pneumonia - received Tamiflu x 3 days Doxycycline x 2 days, stopped due to facial flushing Levaquin 500mg PO x 2 days Prednisone 40mg PO x 2 days Levalbuterol, Atrovent q4h - improved clinically, no dyspnea on ambulation hypoxemia resolved - discharge on: Tamiflu x 2 more days to complete 5 days Levaquin x 3 more days to complete 5 days Prednisone taper Levalbuterol, Atrovent QID - ff up with PCP in 3-5 days ELEVATED D DIMER >450 CT chest: no PE Doppler US of the legs: no PE -- likely from Infection TYPE 2 DM INSULIN DEPENDENT : Has been on insulin pump Hb A1c 9 on 06/21/2016 BSG > 300 due to above -infection -- Pharmacy consulted for Insulin Management -- resume Insulin Pump and Metformin on discharge DEPRESSION: cont Trazodone HS DVT PROPHYLAXIS: sub q heparin given DISPOSITION d/c home ff up with PCP in 5-7 days Total time spent on discharge = 35 minutes This includes examination of the patient, discharge planning, medication reconciliation, and communication with other providers. Discharge Instructions Discharge Instructions Admission Reason for Admission: SOB Discharge Discharge Diagnosis / Problem: INFLUENZA B INFECTION WITH ACUTE BRONCHITIS Discharge Goals Goal(s): Diagnostic testing, Therapeutic intervention Activity Recommendations Activity Limitations: as noted below (NO HEAVY EXERTION UNTIL RE-EVALUATED BY PRIMARY CARE PHYSICIAN) . Instructions / Follow-Up Instructions / Follow-Up PLEASE REVIEW YOUR MEDICATION LIST AND FOLLOW INSTRUCTIONS CAREFULLY. MONITOR BLOOD GLUCOSE CLOSELY IT MAY RISE DUE TO INTAKE OF PREDNISONE. CALL PRIMARY CARE PHYSICIAN IF WITH BLOOD GLUCOSE GREATER THAN 300. CALL PRIMARY CARE PHYSICIAN OR RETURN TO ER IMMEDIATELY IF WITH RETURN OR WORSENING OF SYMPTOMS. TAKE PLENTY OF FLUIDS AND REST. FOLLOW UP WITH DR. DELACRUZ ON SATURDAY AUGUST 20, 2016 AT 1:20PM. Current Hospital Diet Patient's current hospital diet: Diabetes Type 2 Diet Discharge Diet Recommended Diet: Diabetes Type 2 Diet Pending Studies Studies pending at discharge: no Laboratory Results Hemoglobin A1c Test 08/12/16 05:30 Range/Units Estimated Average Glucose 235 mg/dl Hemoglobin A1c 9.8 H 4.5-5.6 % Medical Emergencies . Who to Call and When: Medical Emergencies: If at any time you feel your situation is an emergency, please call 911 immediately. . Non-Emergent Contact Non-Emergency issues call your: Primary Care Provider . Past History Medical & Surgical History: (1) Diab Carla Wo Compl, Type Ii Or Unspec Type, Not Uncntrld (2) Diverticulitis Colon (W/O Ment Of Hemorrhage) (3) Intestinal Obstruct Nec (4) Malignant Johnnie Colon Nos (5) Status post arthroscopy of left knee . "Provider Documentation" section prepared by Ahmet Jauregui. VTE Core Measure Inpt VTE Proph given/why not?: Unfractionated heparin SQ
[2016-12-05] MEDS ORDERED: CEPH500C2 PO (08:31)
[2016-12-05] MEDS ORDERED: SULF800T23 PO (08:40)
== END 2016-08-14 18:30 | disposition home or self-care (01) | DRG 202 ==
LOC: ENRESERVTM → ENRESERVDT → C.EDB 18:19 → C.MED 21:52 → UNDOADMIN 21:52
PROVIDERS: ADMIT Hospitalist; ATTEND Internal Medicine
DX: J20.9 Acute bronchitis, unspecified (principal); J96.01 Acute respiratory failure with hypoxia; E11.9 Type 2 diabetes mellitus without complications; J11.1 Influenza due to unidentified influenza virus with other respiratory manifestations; Z79.4 Long term (current) use of insulin; J45.909 Unspecified asthma, uncomplicated; J44.9 Chronic obstructive pulmonary disease, unspecified; F32.9 Major depressive disorder, single episode, unspecified; Z83.6 Family history of other diseases of the respiratory system; Z82.49 Family history of ischemic heart disease and other diseases of the circulatory system; Z80.3 Family history of malignant neoplasm of breast; Z87.891 Personal history of nicotine dependence; Z91.048 Other nonmedicinal substance allergy status; Z79.899 Other long term (current) drug therapy; R19.7 Diarrhea, unspecified; Z87.19 Personal history of other diseases of the digestive system; Z85.038 Personal history of other malignant neoplasm of large intestine

== ENCOUNTER → 2017-08-18 | Day surgery (SDC) | payer BC ==
[2017-08-06 10:03] VITALS: BMI 55.0
[~2017-08-18] VITALS: Ht 154.9 cm; Wt 134.6 kg
[~2017-08-18] MED LIST changes: +ATROPINE SULFATE 0.1 MG/ML 5ML SYR IV PRN; -BUPR-79 PO; -CLC100 PO; +EpHEDrine SULFATE INJ 50 MG/ML AMP IV PRN; +FENTANYL CITRATE INJ 50 MCG/1 ML 2 ML VIAL IV PRN; +HYDROmorphone INJ 1 MG/ML SYR IV PRN; +LACTATED RINGER'S 1000ML 1,000 ML IV SCH; +LIDOCAINE HCL 2% 2 ML VIAL (20MG/ML) ONE; -LVNIS40 SQ; +MIDAZOLAM HCL 1 MG/ML 2ML VIAL ONE; +NAPR1TAB9 PO; -NVLGI SC; +ONDANSETRON INJ 2 MG/ML 2 ML VIAL IV PRN; +PROPOFOL IV EMULSION 10 MG/ML 20 ML VIAL IV ONE; +SODIUM CHLORIDE 0.9% 1000ML 1,000 ML IV SCH; -TRAZ1TAB52 PO
[2017-08-18 07:45] VITALS: BP 138/72; PULSE 80; TEMP 37.1; O2SAT 99; Ht 154.9 cm; Wt 134.6 kg
--- NOTE | 2017-08-18 09:10 | History & Physical Bridge Note ---
H&P Re-Evaluation Bridge Note: I have examined the patient, reviewed the History & Physical and in the interval since the performance of the History & Physical I have noted the following changes of clinical significance: No changes noted
--- NOTE | 2017-08-18 09:55 | GI REPORT ---
Procedure Date: 08/18/2017 9:27 AM Procedure: Colonoscopy Indications: Personal history of malignant neoplasm of the colon Medicines: Propofol per Anesthesia Complications: No immediate complications. Estimated Blood Loss: Estimated blood loss: none. Procedure: Pre-Anesthesia Assessment: - The risks and benefits of the procedure and the sedation options and risks were discussed with the patient. All questions were answered and informed consent was obtained. - Patient identification and proposed procedure were verified prior to the procedure by the physician, the nurse and the cfo. The procedure was verified in the pre-procedure area in the procedure room. - ASA Grade Assessment: III - A patient with severe systemic disease. After I obtained informed consent, the scope was passed under direct vision. Throughout the procedure, the patient's blood pressure, pulse, and oxygen saturations were monitored continuously. The Scope was introduced through the anus and advanced to the cecum, identified by appendiceal orifice and ileocecal valve. The colonoscopy was performed without difficulty. The patient tolerated the procedure well. The quality of the bowel preparation was good. Findings: The digital rectal exam was normal. A diminutive polyp was found at 10 cm proximal to the anus. The polyp was sessile. The polyp was removed with a jumbo cold forceps. Resection and retrieval were complete. A single medium-sized angioectasia without bleeding was found at 20 cm proximal to the anus. Impression: - One diminutive polyp at 10 cm proximal to the anus, removed with a jumbo cold forceps. Resected and retrieved. - A single non-bleeding colonic angioectasia. Recommendation: - Discharge patient to home. - Await pathology results. - Repeat colonoscopy for surveillance based on pathology results. - Return to my office in 2 weeks. Rodrick Ortega M.D. Rodrick Ortega MD 08/18/2017 9:55:05 AM This report has been signed electronically. Note Initiated On: 08/18/2017 9:27 AM I attest to the content of the Intraoperative Record and orders documented therein, exceptions below
--- NOTE | 2017-08-18 10:24 | Anesthesiology Progress Note ---
Anesthesia Post Op Note Date & Time Aug 18, 2017 at 10:24 Vital Signs Pain Intensity: 0 Vital Signs Past 12 Hours Date Time Temp Pulse Resp B/P (MAP) Pulse Ox O2 Delivery O2 Flow Rate FiO2 08/18/17 10:12 71 16 08/18/17 10:12 71 16 99 08/18/17 10:11 120/63 08/18/17 10:07 72 25 08/18/17 10:07 72 25 100 08/18/17 10:06 114/55 08/18/17 10:03 122/60 08/18/17 10:02 36.1 72 20 122/60 100 Room Air 08/18/17 10:02 74 20 99 08/18/17 10:02 75 20 08/18/17 07:45 37.1 80 20 138/72 (94) 99 Room Air Notes Mental Status: alert / awake / arousable, participated in evaluation Pt Amnestic to Procedure: Yes Nausea / Vomiting: adequately controlled Pain: adequately controlled Airway Patency, RR, SpO2: stable & adequate BP & HR: stable & adequate Hydration State: stable & adequate Anesthetic Complications: no major complications apparent
--- NOTE | 2017-08-18 10:32 | Discharge Instructions ---
Endoscopy Patient Instructions Date / Procedure(s) Performed Aug 18, 2017. Colonoscopy Allergy Information Coded Allergies: Doxycycline (Verified Allergy, Mild, Facial Flush, 08/18/17) Nickel (Verified Allergy, Mild, RASH, REDNESS, ITCHY, 08/18/17) Enoxaparin (Verified Allergy, Unknown, HIVES, 08/18/17) Heparin (Verified Allergy, Unknown, HIVES, 08/18/17) Discharge Date / Findings Aug 18, 2017. One diminutive polyp Provider Instructions Activity Restrictions - No exercising or heavy lifting for 24 hours. - Do not drink alcohol the day of the procedure. - Do not drive a car or operate machinery until the day after the procedure. - Do not make any important decisions or sign important papers in 24 hours after the procedure. Following Day: - Return to full activity which may include returning to work/school. Diet Start your diet with liquids and light foods (jello, soup, juice, toast). Then eat your usual diet if not nauseated. Treatment For Common After Affects For mild abdominal pain, bloating, or excessive gas: - Rest - Eat lightly - Lie on right side Follow-Up Information Follow-up with as scheduled Anesthesia Information What You Should Know You have had a procedure that required some medicine to reduce anxiety and discomfort. This treatment is called moderate sedation. After receiving the treatment, you may be sleepy, but you will be able to breathe on your own. The effects of the treatment may last for several hours. Follow these instructions along with Activity/Diet recommendations noted above: * Do NOT do anything where dizziness or clumsiness would be dangerous. * Rest quietly at home today, then you can be up and about tomorrow. * Have a responsible person stay with you the rest of today. * You may have had an I.V. today. If so, you may take the dressing off later today. Recommendations Call your doctor if: * Trouble breathing * Continuous vomiting for more than 24 hours * Temperature above 101 degrees * Severe abdominal pain or bloating * Pain not relieved by pain medicine ordered * There is increased drainage or redness from any incision * A large amount of rectal bleeding greater than 2-3 tablespoons. (If you had a polyp/s removed or have hemorrhoids, a small amount of blood - from the rectum is to be expected.) * You have any unanswered questions or concerns. IN THE EVENT OF A SERIOUS EMERGENCY, GO TO THE NEAREST EMERGENCY ROOM Your discharge instructions were prepared by provider Rodrick Ortega. Patient Instructions Signature Page Jo Cisneros Patient (or Guardian) Signature/Date: I have read and understand the instructions given to me by my caregivers. Caregiver/RN/Doctor Signature/Date: The above-named patient and/or guardian has received patient instructions on this date. + Original Patient Signature Page (only) stays with chart. Please make copy for patient.
[2017-08-18 10:45] VITALS: BP 158/60; PULSE 75; TEMP 36.6; O2SAT 97
[2017-08-18 11:15] VITALS: BP 158/60; PULSE 81; O2SAT 96
== END | disposition home or self-care (01) ==
LOC: C.ACU 07:03
PROVIDERS: ATTEND Surgery
DX: Z12.11 Encounter for screening for malignant neoplasm of colon (principal); D12.9 Benign neoplasm of anus and anal canal; Z85.038 Personal history of other malignant neoplasm of large intestine; F32.9 Major depressive disorder, single episode, unspecified; E11.9 Type 2 diabetes mellitus without complications; Z79.4 Long term (current) use of insulin; Z79.84 Long term (current) use of oral hypoglycemic drugs; Z87.891 Personal history of nicotine dependence

== ENCOUNTER 2018-02-05 13:51 | Emergency (ER) | payer BC ==
[~2018-02-05] VITALS: Ht 157.5 cm; Wt 135.2 kg
[~2018-02-05 13:51] MED LIST changes: -ATROPINE SULFATE 0.1 MG/ML 5ML SYR IV PRN; -EpHEDrine SULFATE INJ 50 MG/ML AMP IV PRN; -FENTANYL CITRATE INJ 50 MCG/1 ML 2 ML VIAL IV PRN; -HYDROmorphone INJ 1 MG/ML SYR IV PRN; -LACTATED RINGER'S 1000ML 1,000 ML IV SCH; -LIDOCAINE HCL 2% 2 ML VIAL (20MG/ML) ONE; -MIDAZOLAM HCL 1 MG/ML 2ML VIAL ONE; -ONDANSETRON INJ 2 MG/ML 2 ML VIAL IV PRN; -PROPOFOL IV EMULSION 10 MG/ML 20 ML VIAL IV ONE; -SODIUM CHLORIDE 0.9% 1000ML 1,000 ML IV SCH
[2018-02-05 13:54] VITALS: Ht 157.5 cm; Wt 135.2 kg
[2018-02-05] MEDS ORDERED: HYDROmorphone INJ 1 MG/ML SYR IV STA (14:06)
[2018-02-05] MEDS ORDERED: SODIUM CHLORIDE 0.9% 1000ML 1,000 ML IV STA (14:06)
[2018-02-05] MEDS ORDERED: ONDANSETRON INJ 2 MG/ML 2 ML VIAL IV STA (14:06)
[2018-02-05] MEDS ORDERED: KETOROLAC TROMETHAMINE 30 MG/ML VIAL IV STA (14:06)
--- NOTE | 2018-02-05 14:06 | EMERGENCY ROOM VISIT NOTE ---
History Report prepared by Doroteo: Tala Rojo Under the Supervision of: Dr. Winston Hester M.D. First contact with patient: 13:56 Chief Complaint: ILLNESS Stated Complaint: FEVER,VOMITING,CHILLS, HIGH SUGAR, ABD PAIN History of Present Illness The patient is a 52 year old female who presents to the Emergency Room with complaints of a persistent illness. She reports last night, she experienced low back pain, chills, abdominal pain and nausea. Around 0130 this morning she woke up diaphoretic and felt like her fever broke. She tried to go to work this morning, but vomited at 1130, and came home. She has not eaten since yesterday morning. She is diabetic and notes her BSG was 200 when she checked at home this morning, but she did not use her insulin pump because she "didn't give a damn". She did have a normal bowel movement earlier this morning. She no longer has her gallbladder or appendix. She has a history of colon cancer and had a partial bowel resection 10 years ago. She denies any history of kidney stones. Source of History: patient Onset: last night Position: other (global) Timing: other (persistent) Associated Symptoms: + fevers, + chills, + diaphoresis, + nausea, + vomiting , + abdominal pain, + back pain Review of Systems See HPI for pertinent positives & negatives. A total of 10 systems reviewed and were otherwise negative. Past Medical & Surgical Medical Problems: (1) Cellulitis (2) Depression (3) Diab Carla Wo Compl, Type Ii Or Unspec Type, Not Uncntrld (4) Diverticulitis Colon (W/O Ment Of Hemorrhage) (5) H/O vascular insufficiency of intestine (6) History of colon cancer (7) Intestinal Obstruct Nec (8) SOB (shortness of breath) Surgical Problems: (1) H/O arthroscopy of shoulder (2) H/O tubal ligation (3) History of carpal tunnel surgery (4) History of hysterectomy (5) History of incisional hernia repair (6) S/p anal surgery (7) S/P appendectomy (8) S/P BSO (bilateral salpingo-oophorectomy) (9) S/P laparoscopic cholecystectomy (10) S/P laparotomy (11) S/P partial colectomy (12) S/p repair enterovesical fistula (13) Status post arthroscopy of left knee Family History Diabetes mellitus FATHER MOTHER BROTHER SISTER FH: CAD (coronary artery disease) BROTHER Social History Smoking Status: Never Smoker Alcohol Use: none Drug Use: none Marital Status: Housing Status: lives with family Occupation Status: employed Current/Historical Medications Scheduled Fluoxetine (Prozac), 10 MG PO DAILY Insulin Aspart (novoLOG INSULIN PUMP ), 1 EA N/A UD Metformin Hcl (Glucophage), 1,000 MG PO BID Ondasetron Odt (Zofran Odt), 4 MG SL Q6H Sulfa/Trimethoprim (Bactrim Ds 800MG/160MG), 1 TAB PO BID Allergies Coded Allergies: Doxycycline (Verified Allergy, Mild, Facial Flush, 02/05/18) Nickel (Verified Allergy, Mild, RASH, REDNESS, ITCHY, 02/05/18) Enoxaparin (Verified Allergy, Unknown, HIVES, 02/05/18) Heparin (Verified Allergy, Unknown, HIVES, 02/05/18) Physical Exam Vital Signs Date Time Temp Pulse Resp B/P (MAP) Pulse Ox O2 Delivery O2 Flow Rate FiO2 02/05/18 17:20 70 13 131/70 93 02/05/18 16:55 70 12 108/52 93 02/05/18 16:01 36.5 02/05/18 15:31 82 16 114/62 92 Room Air 02/05/18 15:04 86 02/05/18 13:54 36.9 102 22 154/80 97 Room Air Physical Exam GENERAL: Awake, alert, well-appearing, in no acute distress HENT: Normocephalic, atraumatic. Oropharynx unremarkable. EYES: Normal conjunctiva. Sclera non-icteric. NECK: Supple. No nuchal rigidity. FROM. No JVD. No evidence of meningitis or encephalitis on exam. RESPIRATORY: Clear to auscultation. CARDIAC: Regular rate, normal rhythm. Extremities warm and well perfused. Pulses equal. ABDOMEN: Soft, non-distended. No tenderness to palpation. No rebound or guarding. No masses. RECTAL: Deferred. MUSCULOSKELETAL: Chest examination reveals no tenderness. The back is symmetrical on inspection without obvious abnormality. There is no CVA tenderness to palpation. No joint edema. LOWER EXTREMITIES: Calves are equal size bilaterally and non-tender. No edema. No discoloration. NEURO: Normal sensorium. No sensory or motor deficits noted. SKIN: No rash or jaundice noted. Medical Decision & Procedures ER Provider Diagnostic Interpretation: Radiology results as stated below per my review and radiologist interpretation: ABD/PELVIS NO IV OR ORAL CONT CLINICAL HISTORY: 52 years-old Female presenting with Pt c/o Rt sided flank pain. TECHNIQUE: Multidetector CT of the abdomen and pelvis was performed without the use of intravenous contrast. IV contrast: None. A dose lowering technique was used consistent with the principles of ALARA (as low as reasonably achievable). COMPARISON: 11/15/2012. CT DOSE (mGy.cm): The estimated cumulative dose is 2094.94 mGy.cm. FINDINGS: Birdcage Assembler topogram: Cholecystectomy clips. Lung bases: Lungs and pleural spaces clear. Normal heart size. No pericardial or pleural effusion. Liver: Normal morphology. Density consistent with hepatic steatosis. Biliary: No gross biliary ductal dilatation allowing for noncontrast technique. Gallbladder surgically absent. Pancreas: Normal noncontrast appearance. Spleen: Normal noncontrast appearance. Adrenal glands: Normal noncontrast appearance. Kidneys and ureters: Normal noncontrast appearance. No nephrolithiasis. No hydronephrosis. Normal ureters. Bladder: Incompletely evaluated secondary to underdistention. Pelvic organs: Uterus surgically absent. Bowel: Colocolonic anastomosis in the left colon. Additional suture line noted in the distal transverse colon. These were present in 2012. Additional postsurgical change in the cecum possibly from prior appendectomy. No bowel obstruction. Small bowel is contained within the ventral hernia sac without evidence of wall thickening, surrounding inflammatory change, fluid, or obstruction. Peritoneal cavity: No free fluid or intraperitoneal gas. Lymph nodes: No gross lymphadenopathy allowing for noncontrast technique. Vasculature: Normal noncontrast appearance. Abdominal wall: Focal loculated fluid noted in the midline anterior abdominal wall, which has decreased since the prior exam. This is associated with the inferior margin of the multilobular midline ventral hernia sac. Musculoskeletal: Normal. IMPRESSION: 1. Hepatic steatosis. Correlate with liver function tests to exclude steatohepatitis as a cause for abdominal pain. 2. Ventral hernia containing small bowel. No obstruction or other complication. 3. Stable postsurgical changes of the large bowel. Electronically signed by: David Barnes M.D. 02/05/2018 2:56 PM CHEST ONE VIEW PORTABLE CLINICAL HISTORY: Pt c/o Abd pain pain COMPARISON STUDY: No previous studies for comparison. FINDINGS: Findings of developing congestive failure versus pulmonary edema. No focal infiltrate. Prominent pulmonary vasculature. IMPRESSION: Congestive failure versus pulmonary edema. The above report was generated using voice recognition software. It may contain grammatical, syntax or spelling errors. Electronically signed by: Rodrick Martinez M.D. 02/05/2018 2:25 PM Laboratory Results 02/05/18 14:25 Red Blood Count 4.51, Mean Corpuscular Volume 88.5, Mean Corpuscular Hemoglobin 29.7, Mean Corpuscular Hemoglobin Concent 33.6, Mean Platelet Volume 10.2, Neutrophils (%) (Auto) 92.2, Lymphocytes (%) (Auto) 5.1, Monocytes (%) (Auto) 2.1, Eosinophils (%) (Auto) 0.1, Basophils (%) (Auto) 0.3, Neutrophils # (Auto) 8.20, Lymphocytes # (Auto) 0.45, Monocytes # (Auto) 0.19, Eosinophils # (Auto) 0.01, Basophils # (Auto) 0.03 02/05/18 14:25 Test 02/05/18 14:20 02/05/18 14:25 02/05/18 16:27 Urine Color ORANGE Urine Appearance CLOUDY (CLEAR) Urine pH 7.5 (4.5-7.5) Urine Specific [place] 1.020 (1.000-1.030) Urine Protein 2+ (NEG) Urine Glucose (UA) 2+ (NEG) Urine Ketones TRACE (NEG) Urine Occult Blood TRACE (NEG) Urine Nitrite POS (NEG) Urine Bilirubin 1+ (NEG) Urine Urobilinogen NEG (NEG) Urine Leukocyte Esterase MODERATE (NEG) Urine WBC (Auto) >30 /hpf (0-5) Urine RBC (Auto) 5-10 /hpf (0-4) Urine Hyaline Casts (Auto) 1-5 /lpf (0-5) Urine Epithelial Cells (Auto) 20-30 /lpf (0-5) Urine Bacteria (Auto) 4+ (NEG) White Blood Count 8.90 K/uL (4.8-10.8) Red Blood Count 4.51 M/uL (4.2-5.4) Hemoglobin 13.4 g/dL (12.0-16.0) Hematocrit 39.9 % (37-47) Mean Corpuscular Volume 88.5 fL (80-100) Mean Corpuscular Hemoglobin 29.7 pg (25-34) Mean Corpuscular Hemoglobin Concent 33.6 g/dl (32-36) Platelet Count 233 K/uL (130-400) Mean Platelet Volume 10.2 fL (7.4-10.4) Neutrophils (%) (Auto) 92.2 % Lymphocytes (%) (Auto) 5.1 % Monocytes (%) (Auto) 2.1 % Eosinophils (%) (Auto) 0.1 % Basophils (%) (Auto) 0.3 % Neutrophils # (Auto) 8.20 K/uL (1.4-6.5) Lymphocytes # (Auto) 0.45 K/uL (1.2-3.4) Monocytes # (Auto) 0.19 K/uL (0.11-0.59) Eosinophils # (Auto) 0.01 K/uL (0-0.5) Basophils # (Auto) 0.03 K/uL (0-0.2) RDW Standard Deviation 40.9 fL (36.4-46.3) RDW Coefficient of Variation 12.7 % (11.5-14.5) Immature Granulocyte % (Auto) 0.2 % Immature Granulocyte # (Auto) 0.02 K/uL (0.00-0.02) Anion Gap 6.0 mmol/L (3-11) Est Creatinine Clear Calc Drug Dose 113.4 ml/min Estimated GFR () 102.0 Estimated GFR (Non- 88.0 BUN/Creatinine Ratio 13.8 (10-20) Calcium Level 8.4 mg/dl (8.5-10.1) Total Bilirubin 2.0 mg/dl (0.2-1) Direct Bilirubin 0.7 mg/dl (0-0.2) Aspartate Amino Transf (AST/SGOT) 31 U/L (15-37) Alanine Aminotransferase (ALT/SGPT) 42 U/L (12-78) Alkaline Phosphatase 217 U/L (45-117) Total Protein 7.4 gm/dl (6.4-8.2) Albumin 3.3 gm/dl (3.4-5.0) Lipase 76 U/L (73-393) Bedside Glucose 169 mg/dl (70-90) Labs reviewed by ED physician. Medications Administered Medications (Trade) Dose Ordered Sig/Anmol Route Start Time Stop Time Status Last Admin Dose Admin Sodium Chloride 1,000 ml @ 999 mls/hr Q1H1M STAT IV 02/05/18 14:06 02/05/18 15:06 DC 02/05/18 14:32 999 MLS/HR Hydromorphone HCl (Dilaudid Inj) 1 mg NOW STAT IV 02/05/18 14:06 02/05/18 14:10 DC 02/05/18 14:32 1 MG Ketorolac Tromethamine (Toradol Inj) 30 mg NOW STAT IV 02/05/18 14:06 02/05/18 14:10 DC 02/05/18 14:31 30 MG Ondansetron HCl (Zofran Inj) 4 mg NOW STAT IV 02/05/18 14:06 02/05/18 14:10 DC 02/05/18 14:31 4 MG Ceftriaxone Sodium (Rocephin Inj) 1 gm NOW STAT IV 02/05/18 15:02 02/05/18 15:05 DC 02/05/18 15:27 1 GM Trimethoprim/ Sulfamethoxazole (Septra Ds 800/ 160MG Tab) 1 tab NOW STAT PO 02/05/18 15:02 02/05/18 15:05 DC 02/05/18 15:27 1 TAB Acetaminophen (Tylenol Tab) 1,000 mg NOW STAT PO 02/05/18 16:11 02/05/18 16:12 DC 02/05/18 16:15 1,000 MG ED Course 1400: Past medical records reviewed. The patient was evaluated in room B12. A complete history and physical examination was performed. 1610: I reevaluated the patient. She is feeling much better. I discussed her results and discharge instructions and she verbalized complete understanding and agreement. Medical Decision Differential diagnosis: Etiologies such as metabolic, infection, hypo/hyperglycemia, electrolyte abnormalities, cardiac sources, intracerebral event, toxicologic, neurologic, as well as others were entertained. This is a 52-year-old female who presents emergency department with a large number of symptoms. She has no evidence of meningitis or encephalitis on examination and has soft benign belly however she is complaining of abdominal pain. Based on these findings I am concerned the patient may have a stone. She was sent for CAT scan of the abdomen and pelvis however this does not show any evidence of stone. She has a normal white blood cell count and is afebrile here. She does appear to have a urinary tract infection. Patient was given Dilaudid Toradol. She was then given Rocephin and started on Bactrim pending urine culture results. I do feel the patient can be safely discharged home. I will continue her on Bactrim. Patient was in agreement with the treatment plan. Medication Reconcilliation Current Medication List: was personally reviewed by me Blood Pressure Screening Patient's blood pressure: Elevated blood pressure Blood pressure disposition: Elevated BP felt to be situational Impression Primary Impression: UTI (urinary tract infection) Scribe Attestation The scribe's documentation has been prepared under my direction and personally reviewed by me in its entirety. I confirm that the note above accurately reflects all work, treatment, procedures, and medical decision making performed by me. Departure Information Dispostion Home / Self-Care Prescriptions Ondasetron Odt (ZOFRAN ODT) 4 Mg Tab 4 MG SL Q6H for Nausea, #6 TAB Prov: Winston Hester MD 02/05/18 Sulfa/Trimethoprim (Bactrim Ds 800MG/160MG) Tab 1 TAB PO BID for 7 Days, #14 TAB Prov: Winston Hester MD 02/05/18 Referrals Jama Torres M.D. (PCP) Patient Instructions ED UTI Cystitis Female, My [facility] Additional Instructions Culture results are usually available in approx 48 hours You have been examined and treated today on an emergency basis only. This is not a substitute for, or an effort to provide, complete comprehensive medical care. It is impossible to recognize and treat all injuries or illnesses in a single emergency department visit. It is therefore important that you follow up closely with Dr Torres. Call as soon as possible for an appointment. Thank you for your time and consideration. I look forward to speaking with you again soon. Please don't hesitate to call us if you have any questions. Problem Qualifiers Primary Impression: UTI (urinary tract infection) Urinary tract infection type: acute cystitis Hematuria presence: with hematuria Qualified Codes: N30.01 - Acute cystitis with hematuria
--- NOTE | 2018-02-05 14:26 | DIAGNOSTIC IMAGING REPORT ---
CHEST ONE VIEW PORTABLE CLINICAL HISTORY: Pt c/o Abd pain pain COMPARISON STUDY: No previous studies for comparison. FINDINGS: Findings of developing congestive failure versus pulmonary edema. No focal infiltrate. Prominent pulmonary vasculature. IMPRESSION: Congestive failure versus pulmonary edema. The above report was generated using voice recognition software. It may contain grammatical, syntax or spelling errors. Electronically signed by: Rodrick Martinez M.D. 02/05/2018 2:25 PM Dictated Date/Time: 02/05/2018 2:24 PM
[2018-02-05] MEDS ORDERED: FLUO10CA48 PO (14:34)
[2018-02-05 14:35] LABS: BASO % 0.3 %; BASO ABS # 0.03 K/uL (0-0.2); EOS % 0.1 %; EOS ABS # 0.01 K/uL (0-0.5); HEMATOCRIT 39.9 % (37-47); HEMOGLOBIN 13.4 g/dL (12.0-16.0); IG# 0.02 K/uL (0.00-0.02); LYMPH % 5.1 %; LYMPH ABS # 0.45 K/uL (1.2-3.4); MEAN CELL VOLUME 88.5 fL (80-100); MEAN CORPUSCULAR HEMOGLOBIN 29.7 pg (25-34); MEAN CORPUSCULAR HGB CONC 33.6 g/dl (32-36); MEAN PLATELET VOLUME 10.2 fL (7.4-10.4); MONO % 2.1 %; MONO ABS # 0.19 K/uL (0.11-0.59); NEUT % 92.2 %; PLATELET COUNT 233 K/uL (130-400); RED CELL DISTRIBUTION WIDTH CV 12.7 % (11.5-14.5); RED CELL DISTRIBUTION WIDTH SD 40.9 fL (36.4-46.3)
[2018-02-05 14:53] LABS: ALBUMIN 3.3 gm/dl (3.4-5.0); CALCIUM 8.4 mg/dl (8.5-10.1); CREATININE 0.78 mg/dl (0.60-1.20); POTASSIUM 3.7 mmol/L (3.5-5.1); TOTAL PROTEIN 7.4 gm/dl (6.4-8.2)
--- NOTE | 2018-02-05 14:58 | DIAGNOSTIC IMAGING REPORT ---
ABD/PELVIS NO IV OR ORAL CONT CLINICAL HISTORY: 52 years-old Female presenting with Pt c/o Rt sided flank pain. TECHNIQUE: Multidetector CT of the abdomen and pelvis was performed without the use of intravenous contrast. IV contrast: None. A dose lowering technique was used consistent with the principles of ALARA (as low as reasonably achievable). COMPARISON: 11/15/2012. CT DOSE (mGy.cm): The estimated cumulative dose is 2094.94 mGy.cm. FINDINGS: Cytotechnologist topogram: Cholecystectomy clips. Lung bases: Lungs and pleural spaces clear. Normal heart size. No pericardial or pleural effusion. Liver: Normal morphology. Density consistent with hepatic steatosis. Biliary: No gross biliary ductal dilatation allowing for noncontrast technique. Gallbladder surgically absent. Pancreas: Normal noncontrast appearance. Spleen: Normal noncontrast appearance. Adrenal glands: Normal noncontrast appearance. Kidneys and ureters: Normal noncontrast appearance. No nephrolithiasis. No hydronephrosis. Normal ureters. Bladder: Incompletely evaluated secondary to underdistention. Pelvic organs: Uterus surgically absent. Bowel: Colocolonic anastomosis in the left colon. Additional suture line noted in the distal transverse colon. These were present in 2013. Additional postsurgical change in the cecum possibly from prior appendectomy. No bowel obstruction. Small bowel is contained within the ventral hernia sac without evidence of wall thickening, surrounding inflammatory change, fluid, or obstruction. Peritoneal cavity: No free fluid or intraperitoneal gas. Lymph nodes: No gross lymphadenopathy allowing for noncontrast technique. Vasculature: Normal noncontrast appearance. Abdominal wall: Focal loculated fluid noted in the midline anterior abdominal wall, which has decreased since the prior exam. This is associated with the inferior margin of the multilobular midline ventral hernia sac. Musculoskeletal: Normal. IMPRESSION: 1. Hepatic steatosis. Correlate with liver function tests to exclude steatohepatitis as a cause for abdominal pain. 2. Ventral hernia containing small bowel. No obstruction or other complication. 3. Stable postsurgical changes of the large bowel. Electronically signed by: David Barnes M.D. 02/05/2018 2:56 PM Dictated Date/Time: 02/05/2018 2:47 PM
[2018-02-05] MEDS ORDERED: CEFTRIAXONE SOD INJ 1 GM ADDVIAL IV STA (15:02)
[2018-02-05] MEDS ORDERED: SULFAMETHOXAZOLE/TRIMETHOPRIM DS 800/160MG TAB PO STA (15:02)
[2018-02-05] MEDS ORDERED: SULF800T23 PO (15:11)
[2018-02-05] MEDS ORDERED: ONDA4TAB10 SL (15:11)
[2018-02-05 16:01] VITALS: TEMP 36.5
[2018-02-05] MEDS ORDERED: ACETAMINOPHEN 500 MG TAB PO STA (16:11)
[2018-02-05 17:20] VITALS: BP 131/70; PULSE 70; O2SAT 93
== END 2018-02-05 17:22 | disposition home or self-care (01) ==
LOC: C.EDB 13:52
DX: N30.01 Acute cystitis with hematuria (principal); Z85.038 Personal history of other malignant neoplasm of large intestine; Z90.49 Acquired absence of other specified parts of digestive tract; E11.9 Type 2 diabetes mellitus without complications; F32.9 Major depressive disorder, single episode, unspecified; Z96.41 Presence of insulin pump (external) (internal); Z88.1 Allergy status to other antibiotic agents; Z88.8 Allergy status to other drugs, medicaments and biological substances; Z91.09 Other allergy status, other than to drugs and biological substances; Z83.3 Family history of diabetes mellitus; Z82.49 Family history of ischemic heart disease and other diseases of the circulatory system; Z79.84 Long term (current) use of oral hypoglycemic drugs; Z79.899 Other long term (current) drug therapy

== ENCOUNTER 2020-07-27 10:17 | Observation (INO) ==
[2020-07-27] MEDS ORDERED: SODIUM CHLORIDE 0.9% 1000ML 1,000 ML IV ONE (10:35)
--- NOTE | 2020-07-27 10:55 | Emergency Department Note ---
History of Present Illness General Chief complaint: Illness Stated complaint: WEAKNESS/FATIGUE/NAUSEA NEGATIVE COVID TEST Time Seen by Provider: 07/27/20 10:25 Source: patient Mode of arrival: ambulatory Limitations: no limitations History of Present Illness Provider complaint: "I was sent here by my employer" "fatigue, shortness of breath, constipatio Onset (ago): week(s) 2 Maximum Pain Intensity: 2 This 55-year-old female patient with significant past medical history of hyperlipidemia, asthma, gastric sleeve surgery in March presents to the emergency department today for evaluation of fatigue, shortness of breath, and nausea with constipation. The patient states she had a gastric sleeve placed in March and has lost a significant amount of weight, so generally feels fatigued all of the time and her bowel movements have been irregular. She states for the past 2 weeks, her fatigue has increased. She did have a solid and formed bowel movement today, but states prior to that it had been 7 days since her last bowel movement. She states she is having lower abdominal pain and lower back pain with nausea but no vomiting. No fever. Shortness of breath she describes as difficulty getting a deep, satisfying breath, similar nature to shortness of flory ath she has experienced associated with asthma for the past 10 years during this time of the year. Patient states at the request of her family members, she did have a COVID-19 test on Friday. This was negative. She states today at work, she experienced some abdominal cramping and pain prior to having a bowel movement, so her employer wanted her to have medical evaluation because she has not been feeling well over the past 2 weeks in addition to this pain. Patient denies any cough. No chest pain. No hemoptysis or hematemesis. No hematochezia. Home Medications Medication Instructions Recorded Confirmed Type Cartridge Stamped IR 1200 11/01/18 11/24/19 History albuterol sulfate 2 inha INH Q6H PRN #8 gm 11/01/18 07/27/20 Rx fluoxetine [Prozac] 10 mg PO QAM 11/01/18 07/27/20 History Breo Ellipta 1 inh INHALATION HS 11/24/19 07/27/20 History atorvastatin 20 mg PO HS 11/24/19 07/27/20 History cetirizine [Zyrtec] 10 mg PO HS 11/24/19 07/27/20 History calcium carbonate [Calcium 500] 500 mg PO BID 07/27/20 07/27/20 History montelukast 10 mg PO DAILY 07/27/20 07/27/20 History pediatric multivitamin 1 tab PO BID 07/27/20 07/27/20 History [Flintstones Multivitamin] Allergies Allergy/AdvReac Type Severity Reaction Status Date / Time enoxaparin Allergy Intermediate HIVES Verified 07/27/20 11:19 heparin Allergy Intermediate HIVES Verified 07/27/20 11:19 doxycycline Allergy Mild Facial Verified 07/27/20 11:19 Flush nickel Allergy Mild RASH, Verified 07/27/20 11:19 REDNESS, ITCHY Past Med/Surg History Medical History (Updated 07/27/20 @ 21:03 by MALKA Arango) Anxiety Asthma inhaler daily/prn Degenerative disc disease Depression Diabetes mellitus, type 2 Fatty liver History of colon cancer 08/2007--"s/p surgery and chemo" Hyperlipidemia Insulin pump in place Morbid obesity with BMI of 50.0-59.9, adult Osteoarthritis Sleep apnea cpap Surgical History H/O tubal ligation History of arthroscopy of left knee meniscus repair History of bladder surgery pt states "they went in to fix a fistula, but when they got in there all was scar tissue" History of carpal tunnel surgery bilt History of section x2 History of colonoscopy with polypectomy History of colostomy 09/16/2007 History of colostomy reversal 05/2008 History of esophagogastroduodenoscopy (EGD) History of hysterectomy History of incisional hernia repair x4 History of repair of right rotator cuff History of sleeve gastrectomy History of tooth extraction all upper S/P appendectomy S/P BSO (bilateral salpingo-oophorectomy) S/P laparoscopic cholecystectomy S/P laparotomy pt states she has had roughly 20 surgeries on her abdomen S/P partial colectomy 09/10/2007 @ [facility] had colostomy (colostomy failed and had to come back) Status post trigger finger release x3 to right hand Family History Father Family history of diabetes mellitus Mother Family history of diabetes mellitus Brother Family history of diabetes mellitus Sister Family history of diabetes mellitus Sister Family history of diabetes mellitus Brother Family history of diabetes mellitus Brother Family history of diabetes mellitus Brother Family history of diabetes mellitus Other COPD (chronic obstructive pulmonary disease) Emphysema of lung No family history of adverse response to anesthesia Social History Smoking Status: Former smoker Second Hand Exposure: No; Do You Dip or Chew Tobacco: No; Hx Alcohol Use: No Hx Substance Use: No Preferred Language: Citizen Of [place] Communication Ability: Effective 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 Beliefs That Will Affect Care: None Current Living Situation: Spouse Other Information That Helps Us Care for You: No Feels Safe at Home: Yes Safety Concerns: Feels Safe At This Time Assistive Devices: CPAP and Denture - Upper Review of Systems A total of 10 systems reviewed and were otherwise negative Physical Exam Vital Signs Vital Signs - 24 hr 07/27/20 10:21 07/27/20 11:23 07/27/20 11:24 Pulse Rate 86 73 75 Pulse Rate from SpO2 Sensor 73 75 Respiratory Rate 20 16 19 Respiratory Effort / Characteristics Non-Labored Respiratory Depth Normal Respiratory Pattern Regular Blood Pressure 149/75 H 144/107 H Blood Pressure Mean 99 119 Blood Pressure Position Sitting Pulse Oximetry 100 100 100 Oxygen Delivery Method Room Air Room Air Sepsis Recent Fever Within 48 Hours No Sepsis New/Unexplained Change in Mental Status No Sepsis Action Taken by Nursing No Action Required 07/27/20 11:30 07/27/20 11:31 07/27/20 11:40 Pulse Rate 70 73 68 Pulse Rate from SpO2 Sensor 70 73 68 Respiratory Rate 15 17 Respiratory Effort / Characteristics Respiratory Depth Respiratory Pattern Blood Pressure 166/92 H Blood Pressure Mean 116 Blood Pressure Position Pulse Oximetry 100 100 100 Oxygen Delivery Method Sepsis Recent Fever Within 48 Hours Sepsis New/Unexplained Change in Mental Status Sepsis Action Taken by Nursing 07/27/20 11:50 07/27/20 12:00 07/27/20 12:10 Pulse Rate 69 74 68 Pulse Rate from SpO2 Sensor 69 76 68 Respiratory Rate 13 18 22 Respiratory Effort / Characteristics Respiratory Depth Respiratory Pattern Blood Pressure 152/93 H Blood Pressure Mean 112 Blood Pressure Position Pulse Oximetry 100 100 100 Oxygen Delivery Method Sepsis Recent Fever Within 48 Hours Sepsis New/Unexplained Change in Mental Status Sepsis Action Taken by Nursing 07/27/20 12:20 07/27/20 12:30 07/27/20 12:40 Pulse Rate 68 66 69 Pulse Rate from SpO2 Sensor 68 58 L 69 Respiratory Rate 16 17 Respiratory Effort / Characteristics Respiratory Depth Respiratory Pattern Blood Pressure 154/91 H Blood Pressure Mean 112 Blood Pressure Position Pulse Oximetry 100 100 100 Oxygen Delivery Method Sepsis Recent Fever Within 48 Hours Sepsis New/Unexplained Change in Mental Status Sepsis Action Taken by Nursing 07/27/20 13:02 07/27/20 13:10 07/27/20 13:38 Pulse Rate 78 71 70 Pulse Rate from SpO2 Sensor Respiratory Rate 16 Respiratory Effort / Characteristics Respiratory Depth Respiratory Pattern Blood Pressure Blood Pressure Mean Blood Pressure Position Pulse Oximetry Oxygen Delivery Method Sepsis Recent Fever Within 48 Hours Sepsis New/Unexplained Change in Mental Status Sepsis Action Taken by Nursing 07/27/20 13:39 07/27/20 13:41 07/27/20 13:50 Pulse Rate 71 70 69 Pulse Rate from SpO2 Sensor 70 69 68 Respiratory Rate 15 15 14 Respiratory Effort / Characteristics Respiratory Depth Respiratory Pattern Blood Pressure 162/90 H Blood Pressure Mean 114 Blood Pressure Position Pulse Oximetry 99 100 100 Oxygen Delivery Method Sepsis Recent Fever Within 48 Hours Sepsis New/Unexplained Change in Mental Status Sepsis Action Taken by Nursing 07/27/20 14:00 07/27/20 14:10 07/27/20 14:29 Pulse Rate 68 69 67 Pulse Rate from SpO2 Sensor 67 68 Respiratory Rate 18 16 18 Respiratory Effort / Characteristics Respiratory Depth Respiratory Pattern Blood Pressure 148/76 H Blood Pressure Mean 100 Blood Pressure Position Pulse Oximetry 100 100 Oxygen Delivery Method Sepsis Recent Fever Within 48 Hours Sepsis New/Unexplained Change in Mental Status Sepsis Action Taken by Nursing 07/27/20 14:30 07/27/20 14:32 Pulse Rate 67 68 Pulse Rate from SpO2 Sensor 68 Respiratory Rate 14 17 Respiratory Effort / Characteristics Respiratory Depth Respiratory Pattern Blood Pressure 149/80 H Blood Pressure Mean 103 Blood Pressure Position Pulse Oximetry 100 Oxygen Delivery Method Sepsis Recent Fever Within 48 Hours Sepsis New/Unexplained Change in Mental Status Sepsis Action Taken by Nursing VITALS: Vitals are noted on the nurse's note and reviewed by myself. Patient is mildly hypertensive. Heart rate 86. Respiratory rate 20. O2 saturation 100% on room air. GENERAL: This is a 55-year-old white female, in no acute distress, nondiaphoretic, well-developed well-nourished. SKIN: The skin was without rashes, erythema, edema, or bruising. There is no tenting of the skin. Capillary refill less than 2 seconds. HEAD: Normocephalic atraumatic. EYES: Conjunctivae without injection, sclerae without icterus. NECK: Supple without nuchal rigidity. No lymphadenopathy. No thyromegaly. Cervical spine is nontender. No JVD. LUNGS: Patient is breathing without difficulty and speaking in complete sentences without difficulty. No retractions or accessory muscle use. ABDOMEN: Positive bowel sounds x 4. Normal tympanic percussion. Soft, nontender, without masses or organomegaly. Cooney sign negative. No guarding or rebound tenderness. MUSCULOSKELETAL: No muscle atrophy, erythema, or edema noted. Full range of motion without joint tenderness in all extremities. No tenderness to palpation. Normal gait. Strength 5/5 throughout. NEURO: Patient was alert and oriented to person place and time. No focal neurological deficits. Course Course The patient was seen and evaluated as above. An order was placed for continuous cardiac monitoring. The monitor shows a normal sinus rhythm at a rate of 68 bpm. IV access obtained, labs drawn. Patient medicated with IV fluids. Imaging performed and reviewed by myself and radiologist as noted. Labs reviewed by myself. Patient medicated with IV and p.o. potassium supplementation. I discussed the findings with the patient at bedside. I discussed case with patient's PCP, Dr. Torres regarding the potential to manage this as an outpatient. He would prefer the patient come in if possible in order to get blood sugars under better control, insulin sliding scale initiated, and get the patient feeling better quicker, though did offer to follow-up in the short-term if the patient declines admission. I discussed the case with the strategic account manager. I discussed the case with the patient at bedside. I offered her admission versus discharge to home and outpatient follow-up. We did discuss the probable observation status and I verbalized to the patient that she would be responsible for in the ED co-pay as well as her deductible based on her insurance, per the strategic account manager. The patient verbalized her understanding and was agreeable to stay in the hospital. I discussed the case with MALKA Arango with [facility] hospitalist. She did agree to see and evaluate the patient for admission. Administered Medications Atorvastatin Calcium (Atorvastatin 20 Mg Tab) 20 mg PO HS KATIE Stop: 08/26/20 20:59 Last Admin: 07/27/20 21:00 Dose: 20 mg Documented by: [id number] Calcium Carbonate (Calcium Carbonate 1250mg Tab) 1,250 mg PO BID [facility] Stop: 08/26/20 20:59 Last Admin: 07/27/20 20:59 Dose: 1,250 mg Documented by: [id number] Cetirizine HCl (Cetirizine Hcl 10 Mg Tablet) 10 mg PO [facility] Stop: 08/26/20 20:59 Last Admin: 07/27/20 20:59 Dose: 10 mg Documented by: [id number] Docusate Sodium (Docusate Sodium 100 Mg Cap) 100 mg PO BID KATIE Stop: 08/26/20 20:59 Last Admin: 07/27/20 21:00 Dose: 100 mg Documented by: [id number] Fluticasone/Vilanterol (Fluticasone/Vilanterol 200/25mcg 14 Puffs/Inhaler) 1 puffs INH [facility] Stop: 08/26/20 20:59 Last Admin: 07/27/20 20:59 Dose: 1 puffs Documented by: [id number] Insulin Aspart (Insulin Aspart 100 Units/Ml 3 Ml Pen) 0 units SC Q4 [facility] Stop: 08/26/20 17:59 Last Admin: 07/28/20 04:09 Dose: 1 units Documented by: [id number] Cosigned by: [id number] Admin: 07/27/20 23:50 Dose: 1 units Documented by: [id number] Cosigned by: [id number] Admin: 07/27/20 21:03 Dose: 3 units Documented by: [id number] Cosigned by: [id number] Admin: 07/27/20 18:02 Dose: 6 units Documented by: [id number] Cosigned by: [id number] Polyethylene Glycol (Polyethylene (Miralax) 17 Gm Pack) 17 gm PO [facility] Stop: 08/26/20 20:59 Last Admin: 07/27/20 20:59 Dose: 17 gm Documented by: [id number] Discontinued Medications Sodium Chloride (Nss 1000ml) 1,000 mls @ 999 mls/hr IV .Q1H1M ONE Stop: 07/27/20 11:35 Last Infusion: 07/27/20 16:26 Dose: 0 mls/hr Documented by: [id number] Admin: 07/27/20 11:26 Dose: 999 mls/hr Documented by: [id number] Potassium Chloride (K Jc / Wtr) 10 meq in 100 mls @ 100 mls/hr IV Q1H KATIE Stop: 07/27/20 14:14 Last Infusion: 07/27/20 16:26 Dose: 0 mls/hr Documented by: [id number] Admin: 07/27/20 14:41 Dose: 100 mls/hr Documented by: [id number] Infusion: 07/27/20 13:59 Dose: 100 mls/hr Documented by: [id number] Admin: 07/27/20 12:59 Dose: 100 mls/hr Documented by: [id number] Insulin Glargine (Insulin Glargine Solostar 100 Units/Ml 3 Ml Pen) 18 units SC NOW ONE Stop: 07/27/20 17:46 Last Admin: 07/27/20 18:00 Dose: 18 units Documented by: [id number] Cosigned by: [id number] Ioversol (Ioversol 100ml) 94 ml IV ONCE ONE Stop: 07/27/20 13:22 Last Admin: 07/27/20 13:21 Dose: 94 ml Documented by: [id number] Potassium Chloride (Potassium Chloride Crtab 20 Meq Tabcr) 20 meq PO NOW STA Stop: 07/27/20 12:15 Last Admin: 07/27/20 12:59 Dose: 20 meq Documented by: [id number] Potassium Chloride (Potassium Chloride Crtab 20 Meq Tabcr) 40 meq PO Q4H KATIE Stop: 07/27/20 21:01 Last Admin: 07/27/20 21:00 Dose: 40 meq Documented by: [id number] Admin: 07/27/20 17:58 Dose: 40 meq Documented by: [id number] Medical Decision Making Differential Diagnosis Differential diagnosis includes COVID-19, hyperglycemia, metabolic abnormality, electrolyte abnormality, viral etiology, cardiac etiology, Lyme disease, vitamin deficiency, gastroenteritis, malignancy, among others Medical Records Attestation: I reviewed the patient's medical records. Home Medications Current Medication List: was personally reviewed by me Laboratory Data Attestation: I reviewed the patient's lab results. No leukocytosis, anemia, thrombocytopenia. Renal, hepatic function, and electrolytes without significant abnormality. Coags normal. ESR 18. Blood sugar is elevated at 335. Troponin negative. Lipase 162. Vitamin B12 1280. Folic acid 12.9. TSH 1.3. Lyme disease testing negative. Beta hydroxybutyric acid 94. Result diagrams: 07/27/20 11:30 07/27/20 21:47 Lab Results 07/27/20 07/27/20 07/27/20 Range/Units 11:30 11:30 11:30 WBC 8.17 (4.8-10.8) K/uL RBC 4.97 (4.2-5.4) M/uL Hgb 15.9 (12.0-16.0) g/dL Hct 44.2 (37-47) % MCV 88.9 (80-100) fL MCH 32.0 (25-34) pg MCHC 36.0 (32-36) g/dL RDW Std Deviation 46.3 (36.4-46.3) fL RDW Coeff of Filippo 14.2 (11.5-14.5) % Plt Count 206 (130-400) K/uL MPV 11.5 H (7.4-10.4) fL Immature Gran % (Auto) 0.2 % Neut % (Auto) 80.4 % Lymph % (Auto) 10.3 % [place] % (Auto) 8.7 % Eos % (Auto) 0.2 % Baso % (Auto) 0.2 % Neut # (Auto) 6.56 H (1.4-6.5) K/uL Lymph # (Auto) 0.84 L (1.2-3.4) K/uL [place] # (Auto) 0.71 H (0.11-0.59) K/uL Eos # (Auto) 0.02 (0-0.5) K/uL Baso # (Auto) 0.02 (0-0.2) K/uL Immature Gran # (Auto) 0.02 (0.00-0.02) K/uL ESR 18 (0-21) mm/hr PT 10.9 (9.0-12.0) Seconds INR 1.0 (0.9-1.1) APTT 27.1 (21.0-31.0) Seconds PTT Ratio 1.0 Sodium (136-145) mmol/L Potassium (3.5-5.1) mmol/L Chloride (98-107) mmol/L Carbon Dioxide (21-32) mmol/L Anion Gap (3-11) BUN (7-18) mg/dl Creatinine (0.6-1.2) mg/dl Est Cr Clr Drug Dosing ml/min Est GFR ( Amer) Est GFR (Non-Af Amer) BUN/Creatinine Ratio (10-20) Glucose (70-99) mg/dl Estimat Average Glucose mg/dl Hemoglobin A1c (4.5-5.6) % Calcium (8.5-10.1) mg/dl Magnesium (1.8-2.4) mg/dl Total Bilirubin (0.2-1) mg/dl AST (15-37) U/L ALT (12-78) U/L Alkaline Phosphatase (45-117) U/L Troponin I (0-0.045) ng/ml Total Protein (6.4-8.2) gm/dl Albumin (3.4-5.0) gm/dl Globulin (2.5-4.0) gm/dl Albumin/Globulin Ratio (0.9-2) Lipase (73-393) U/L Vitamin B12 (193-986) pg/ml Folate (>5.38) ng/ml Beta-Hydroxybutyric Acd (0.2-2.81) mg/dl TSH (0.300-4.500) uIu/ml Lyme Disease IgG Ab (Negative) Lyme Disease IgM Ab (Negative) 07/27/20 07/27/20 07/27/20 Range/Units 11:30 11:30 11:30 WBC (4.8-10.8) K/uL RBC (4.2-5.4) M/uL Hgb (12.0-16.0) g/dL Hct (37-47) % MCV (80-100) fL MCH (25-34) pg MCHC (32-36) g/dL RDW Std Deviation (36.4-46.3) fL RDW Coeff of Filippo (11.5-14.5) % Plt Count (130-400) K/uL MPV (7.4-10.4) fL Immature Gran % (Auto) % Neut % (Auto) % Lymph % (Auto) % [place] % (Auto) % Eos % (Auto) % Baso % (Auto) % Neut # (Auto) (1.4-6.5) K/uL Lymph # (Auto) (1.2-3.4) K/uL [place] # (Auto) (0.11-0.59) K/uL Eos # (Auto) (0-0.5) K/uL Baso # (Auto) (0-0.2) K/uL Immature Gran # (Auto) (0.00-0.02) K/uL ESR (0-21) mm/hr PT (9.0-12.0) Seconds INR (0.9-1.1) APTT (21.0-31.0) Seconds PTT Ratio Sodium 131 L (136-145) mmol/L Potassium 2.7 L (3.5-5.1) mmol/L Chloride 97 L (98-107) mmol/L Carbon Dioxide 13 L (21-32) mmol/L Anion Gap 21.0 H (3-11) BUN 11 (7-18) mg/dl Creatinine 0.88 (0.6-1.2) mg/dl Est Cr Clr Drug Dosing 74.5 ml/min Est GFR ( Amer) 86.3 Est GFR (Non-Af Amer) 74.5 BUN/Creatinine Ratio 12.7 (10-20) Glucose 335 H* (70-99) mg/dl Estimat Average Glucose 338 mg/dl Hemoglobin A1c 13.4 H (4.5-5.6) % Calcium 9.8 (8.5-10.1) mg/dl Magnesium 1.9 (1.8-2.4) mg/dl Total Bilirubin 0.9 (0.2-1) mg/dl AST 8 L (15-37) U/L ALT 22 (12-78) U/L Alkaline Phosphatase 361 H (45-117) U/L Troponin I < 0.015 (0-0.045) ng/ml Total Protein 7.7 (6.4-8.2) gm/dl Albumin 3.9 (3.4-5.0) gm/dl Globulin 3.8 (2.5-4.0) gm/dl Albumin/Globulin Ratio 1.0 (0.9-2) Lipase 162 (73-393) U/L Vitamin B12 (193-986) pg/ml Folate (>5.38) ng/ml Beta-Hydroxybutyric Acd 94.82 H (0.2-2.81) mg/dl TSH 1.300 (0.300-4.500) uIu/ml Lyme Disease IgG Ab Negative (Negative) Lyme Disease IgM Ab Negative (Negative) 07/27/20 Range/Units 12:00 WBC (4.8-10.8) K/uL RBC (4.2-5.4) M/uL Hgb (12.0-16.0) g/dL Hct (37-47) % MCV (80-100) fL MCH (25-34) pg MCHC (32-36) g/dL RDW Std Deviation (36.4-46.3) fL RDW Coeff of Filippo (11.5-14.5) % Plt Count (130-400) K/uL MPV (7.4-10.4) fL Immature Gran % (Auto) % Neut % (Auto) % Lymph % (Auto) % [place] % (Auto) % Eos % (Auto) % Baso % (Auto) % Neut # (Auto) (1.4-6.5) K/uL Lymph # (Auto) (1.2-3.4) K/uL [place] # (Auto) (0.11-0.59) K/uL Eos # (Auto) (0-0.5) K/uL Baso # (Auto) (0-0.2) K/uL Immature Gran # (Auto) (0.00-0.02) K/uL ESR (0-21) mm/hr PT (9.0-12.0) Seconds INR (0.9-1.1) APTT (21.0-31.0) Seconds PTT Ratio Sodium (136-145) mmol/L Potassium (3.5-5.1) mmol/L Chloride (98-107) mmol/L Carbon Dioxide (21-32) mmol/L Anion Gap (3-11) BUN (7-18) mg/dl Creatinine (0.6-1.2) mg/dl Est Cr Clr Drug Dosing ml/min Est GFR ( Amer) Est GFR (Non-Af Amer) BUN/Creatinine Ratio (10-20) Glucose (70-99) mg/dl Estimat Average Glucose mg/dl Hemoglobin A1c (4.5-5.6) % Calcium (8.5-10.1) mg/dl Magnesium (1.8-2.4) mg/dl Total Bilirubin (0.2-1) mg/dl AST (15-37) U/L ALT (12-78) U/L Alkaline Phosphatase (45-117) U/L Troponin I (0-0.045) ng/ml Total Protein (6.4-8.2) gm/dl Albumin (3.4-5.0) gm/dl Globulin (2.5-4.0) gm/dl Albumin/Globulin Ratio (0.9-2) Lipase (73-393) U/L Vitamin B12 1280 H (193-986) pg/ml Folate 12.90 (>5.38) ng/ml Beta-Hydroxybutyric Acd (0.2-2.81) mg/dl TSH (0.300-4.500) uIu/ml Lyme Disease IgG Ab (Negative) Lyme Disease IgM Ab (Negative) Imaging Data Radiologist's Impression: XR chest 1V portable CLINICAL HISTORY: Fatigue. COMPARISON STUDY: Chest CT August 11, 2016. Chest radiograph November 01, 2018. FINDINGS: Lung volumes are normal. Lungs are clear. There is no pneumothorax or pleural effusion. Cardiac size is normal. Mediastinal contours are normal. There is no evidence for pulmonary edema. IMPRESSION: No acute cardiopulmonary findings. ACT 112: Negative or not required by law. Electronically signed by: Vishal Zavala M.D. 07/27/2020 11:[address] abd pelvis oral and IV con CLINICAL HISTORY: lower abdominal pain, hx. gastric sleeve March COMPARISON STUDY: 02/05/2018 TECHNIQUE: Patient was scanned following administration of dilute oral contrast, and in a dynamic helical fashion during intravenous administration of 94 cc of Optiray 320 A dose lowering technique was utilized adhering to the principles of ALARA. CT DOSE: 964.27 mGy.cm FINDINGS: Lower chest: The heart is normal in size and configuration, without pericardial effusion. The lung bases and pleural spaces are clear. Liver: There is borderline hepatic steatosis. No focal masses are visualized. The portal and hepatic veins appear patent Gallbladder: Surgically absent Spleen: Mildly enlarged measuring 12.8 cm Pancreas: Unremarkable. Adrenal glands: Unremarkable. Kidneys: There is mild dilatation of both collecting systems. No solid renal masses are visualized. No ureteral calculi are visualized. Bowel: There are postsurgical changes of a gastric sleeve procedure. There are postsurgical changes of a left colonic anastomosis. There are no transition zones indicate bowel obstruction. There is moderate fecal retention. There is no evidence of acute diverticulitis. By history the appendix is surgically absent. There is a ventral hernia containing multiple small bowel loops. No obstructive changes are evident is a stable low-density 23 mm lesion within the midline abdominal wall near the level of the umbilicus. This remains unchanged from the prior study and may represent a postsurgical seroma. There are small fat-contai angela umbilical hernia Peritoneum: There is no intraperitoneal free air or abdominal ascites. Vasculature: The abdominal aorta is normal in course and caliber. Adenopathy: None. Pelvic viscera: The uterus appears surgically absent. The bladder is mildly distended Skeletal structures: 0 IMPRESSION: 1. No evidence of bowel obstruction. No evidence of free air 2. Postsurgical changes involving the stomach and colon 3. Moderate fecal retention. 4. Ventral hernia containing multiple small bowel loops. No current evidence of obstruction 5. Stable 23 mm hypodense abdominal wall lesion possibly representing a postsurgical seroma 6. Mild dilatation of the renal collecting systems and mild bladder distention. No calculi identified 7. No acute inflammatory changes ACT 112: Negative or not required by law. Electronically signed by: Nguyễn Abreu M.D. 07/27/2020 1:37 PM ECG Data Attestation: I personally reviewed and interpreted this ECG as follows: Indication: + other (fatigue) Rate (beats per minute): 70 Rhythm: + normal sinus ECG [place]: + Normal ECG ST segments: no ST depression and no ST elevation Comparison ECG Date: from (11/01/2018) Change: no significant change Blood Pressure Blood Pressure Findings: Elevated blood pressure Blood Pressure Disposition: further management by hospitalist STU Narrative This 55-year-old female patient presents to the emergency department today for 2-week long history of weakness, fatigue, nausea, and generally feeling unwell. The patient had a gastric sleeve placed in March. She states she has had irregular bowel movements and today developed some lower abdominal pain into her back associated with a bowel movement. The patient has not been taking her insulin since the gastric sleeve surgery. She states she was reliant on a pump prior to the surgery. Work-up here in the ED consistent with hyperglycemia and hypokalemia. The patient's potassium was replaced. She was hydrated with IV fluids. I did speak with her primary care provider regarding the potential for outpatient treatment versus inpatient. He preferred inpatient management, and I agree that the patient will likely feel much better quicker to have her electrolytes replenished, be appropriately hydrated, and get restarted on insulin. The patient was agreeable with this plan. [facility]. Please see hospitalist dictation regarding ongoing management care of this patient. The chart was completed utilizing [employer] Speech voice recognition software. Grammatical errors, random word insertions, pronoun errors, and incomplete sentences are an occasional consequence of this system due to software limitations, ambient noise, and hardware issues. Any formal questions or concerns about the content, text, or information contained within the body of this dictation should be directly addressed to the provider for clarification. Impression & Plan Hyperglycemia, Hypokalemia, Fatigue, Abdominal pain, Constipation Discharge Plan Visit Data Chief Complaint: Illness Stated Complaint: WEAKNESS/FATIGUE/NAUSEA NEGATIVE COVID TEST ED Provider: Winston Hester ED Midlevel Provider: Omaira Christopher Discharge Problem: Hyperglycemia, Hypokalemia, Fatigue, Abdominal pain, Constipation Patient Disposition: Admitted As Inpatient Discharge Instructions Interventions: ED Discharge Assessment Last Done: 07/27/20 15:55 Discharge Problem: Constipation Qualifiers: Constipation type: unspecified constipation type Qualified Code(s): K59.00 - Constipation, unspecified
--- NOTE | 2020-07-27 11:22 | XRay Report ---
XR chest 1V portable CLINICAL HISTORY: Fatigue. COMPARISON STUDY: Chest CT August 11, 2016. Chest radiograph November 01, 2018. FINDINGS: Lung volumes are normal. Lungs are clear. There is no pneumothorax or pleural effusion. Car diac size is normal. Mediastinal contours are normal. There is no evidence for pulmonary edema. IMPRESSION: No acute cardiopulmonary findings. ACT 112: Negative or not required by law. Electronically signed by: Vishal Zavala M.D. 07/27/2020 11:20 AM
[2020-07-27 11:46] LABS: Basophils # (auto) 0.02 K/uL (0-0.2); Basophils % (auto) 0.2 %; Eosinophils # (auto) 0.02 K/uL (0-0.5); Eosinophils % (auto) 0.2 %; Hematocrit (blood only) 44.2 % (37-47); Hemoglobin 15.9 g/dL (12.0-16.0); Immature Granulocytes # (auto) 0.02 K/uL (0.00-0.02); Immature Granulocytes % (auto) 0.2 %; Lymphocytes # (auto) 0.84 K/uL (1.2-3.4); Lymphocytes % (auto) 10.3 %; Mean Corpuscular Volume 88.9 fL (80-100); Mean Platelet Volume 11.5 fL (7.4-10.4); Monocytes # (auto) 0.71 K/uL (0.11-0.59); Monocytes % (auto) 8.7 %; Neutrophils # (auto) 6.56 K/uL (1.4-6.5); Neutrophils % (auto) 80.4 %; Platelet Count 206 K/uL (130-400); RDW Coefficient of Variation 14.2 % (11.5-14.5); RDW Standard Deviation 46.3 fL (36.4-46.3); Red Blood Count 4.97 M/uL (4.2-5.4); White Blood Count 8.17 K/uL (4.8-10.8)
[2020-07-27 11:57] LABS: Partial Thromboplastin Time 27.1 Seconds (21.0-31.0); Prothrombin Time 10.9 Seconds (9.0-12.0)
[2020-07-27 12:08] LABS: Alanine Aminotransferase 22 U/L (12-78); Albumin Level 3.9 gm/dl (3.4-5.0); Aspartate Aminotransferase 8 U/L (15-37); BUN Creatinine Ratio 12.7 (10-20); Blood Urea Nitrogen 11 mg/dl (7-18); Calcium 9.8 mg/dl (8.5-10.1); Carbon Dioxide 13 mmol/L (21-32); Chloride 97 mmol/L (98-107); Creatinine Clr Calc Pharmacy 74.5 ml/min; Est GFR (African American) 86.3; Est GFR (Non-African American) 74.5; Glucose 335 mg/dl (70-99); Lipase 162 U/L (73-393); Magnesium 1.9 mg/dl (1.8-2.4); Potassium 2.7 mmol/L (3.5-5.1); Sodium 131 mmol/L (136-145)
[2020-07-27 12:13] LABS: Alkaline Phosphatase 361 U/L (45-117); Bilirubin,Total 0.9 mg/dl (0.2-1); Globulin 3.8 gm/dl (2.5-4.0); Total Protein 7.7 gm/dl (6.4-8.2); Troponin I < 0.015 ng/ml (0-0.045)
[2020-07-27] MEDS ORDERED: POTASSIUM CHLORIDE CRTAB 20 MEQ TABCR PO STA (12:14)
[2020-07-27 12:43] LABS: Beta-Hydroxybutyrate 94.82 mg/dl (0.2-2.81)
[2020-07-27] MEDS: POTASSIUM CHLORIDE / WTR 10 MEQ/100 ML PLCT IV SCH ×2 (12:59→14:41)
[2020-07-27 13:12] LABS: Folate (Folic Acid) 12.9 ng/ml (>5.38)
[2020-07-27 13:20] LABS: Lyme Ab IgG w/WB Rflx Negative (Negative); Lyme Ab IgM w/WB Rflx Negative (Negative)
[2020-07-27] MEDS ORDERED: IOVERSOL 100ml IV ONE (13:21)
--- NOTE | 2020-07-27 13:39 | CT Scan Report ---
CT abd pelvis oral and IV con CLINICAL HISTORY: lower abdominal pain, hx. gastric sleeve March COMPARISON STUDY: 02/05/2018 TECHNIQUE: Patient was scanned following administration of dilute oral contrast, and in a dynamic hel ical fashion during intravenous administration of 94 cc of Optiray 320 A dose lowering technique was utilized adhering to the principles of ALARA. CT DOSE: 964.27 mGy.cm FINDINGS: Lower chest: The heart is normal in size and configuration, without pericardial effusion. The lung ba ses and pleural spaces are clear. Liver: There is borderline hepatic steatosis. No focal masses are visualized. The portal and hepatic veins appear patent Gallbladder: Surgically absent Spleen: Mildly enlarged measuring 12.8 cm Pancreas: Unremarkable. Adrenal glands: Unremarkable. Kidneys: There is mild dilatation of both collecting systems. No solid renal masses are visualized. N o ureteral calculi are visualized. Bowel: There are postsurgical changes of a gastric sleeve procedure. There are postsurgical changes o f a left colonic anastomosis. There are no transition zones indicate bowel obstruction. There is mode rate fecal retention. There is no evidence of acute diverticulitis. By history the appendix is surgic ally absent. There is a ventral hernia containing multiple small bowel loops. No obstructive changes are evident is a stable low-density 23 mm lesion within the midline abdominal wall near the level of the umbilicus. This remains unchanged from the prior study and may represent a postsurgical seroma. T here are small fat-containing umbilical hernia Peritoneum: There is no intraperitoneal free air or abdominal ascites. Vasculature: The abdominal aorta is normal in course and caliber. Adenopathy: None. Pelvic viscera: The uterus appears surgically absent. The bladder is mildly distended Skeletal structures: 0 IMPRESSION: 1. No evidence of bowel obstruction. No evidence of free air 2. Postsurgical changes involving the stomach and colon 3. Moderate fecal retention. 4. Ventral hernia containing multiple small bowel loops. No current evidence of obstruction 5. Stable 23 mm hypodense abdominal wall lesion possibly representing a postsurgical seroma 6. Mild dilatation of the renal collecting systems and mild bladder distention. No calculi identified 7. No acute inflammatory changes ACT 112: Negative or not required by law. Electronically signed by: Nguyễn Abreu M.D. 07/27/2020 1:37 PM
[2020-07-27] MEDS ORDERED: ACETAMINOPHEN 325 MG TAB PO PRN (16:24)
[2020-07-27] MEDS ORDERED: PHARMACY GLYCEMIC MGMT CONSULT PRN (16:35)
--- NOTE | 2020-07-27 16:57 | Electrocardiogram Report ---
Test Reason : Blood Pressure : / mmHG Vent. Rate : 070 BPM Atrial Rate : 070 BPM P-R Int : 152 ms QRS Dur : 092 ms QT Int : 416 ms P-R-T Axes : 061 039 076 degrees QTc Int : 449 ms Poor data quality, interpretation may be adversely affected Normal sinus rhythm When compared with ECG of 01-NOV-2018 12:24, No significant change was found Confirmed by Dariusz Villela ([id number]) on 07/27/2020 4:56:58 PM Referred By: REFERRED SELF Confirmed By:Alex Villela
[2020-07-27 17:06] LABS: BUN Creatinine Ratio 10.9 (10-20); Calcium 8.4 mg/dl (8.5-10.1); Est GFR (African American) 113.8; Est GFR (Non-African American) 98.2; Potassium 2.8 mmol/L (3.5-5.1)
[2020-07-27] MEDS ORDERED: INSULIN GLARGINE SOLOSTAR 100 UNITS/ML 3 ML PEN SC ONE (17:45)
[2020-07-27] MEDS: POTASSIUM CHLORIDE CRTAB 20 MEQ TABCR PO SCH ×2 (17:58→21:00)
[2020-07-27] MEDS ORDERED: cefTRIAXone SODIUM 2,000 MG in DEXTROSE 5% 50 ML IV SCH (18:00)
[2020-07-27] MEDS: INSULIN ASPART 100 UNITS/ML 3 ML PEN SC SCH ×3 (18:02→23:50)
--- NOTE | 2020-07-27 19:11 | Pharmacy Report ---
Pharmacy Glycemic Short Note 2 - Date of Service July 27, 2020 - Glycemic Short BSG Results (Last 24 hours): 07/27/20 07/27/20 07/27/20 11:30 16:34 17:09 Glucose 335 H* 260 H POC Glucose 250 H OUTPATIENT ANTIDIABETIC REGIMEN: * N/A; was on an insulin pump for T2DM but has not been using this for the past month * Pump Settings: * Basal 0.5 units/hr = 12 units/day * CF = 30mg/dl/unit * CR = 1 unit for every 20g CHO consumed * A1c = ? Pending ASSESSMENT: * 55yo T2DM female admitted with hyperglycemia; DKA. Pt with significant weight loss over the past few months s/p gastric sleeve surgery. Pt has not been using any antidiabetic agents for the past month * Pt admitted with moderate DKA and hypokalemia. Repleting K+ prior to initiating IV insulin infusion. * Labs and BSGs responded well to fluids. Will start with SQ basal bolus insulin regimen similar to outpatient pump settings and titrate based on BSG trends. PLAN FOR INPATIENT GLYCEMIC CONTROL: * Basal insulin * Lantus 18 (0.2 units/kg) units SQ x 1 dose now (this is 1.5x outpatient dosing for insulin resistance s/p DKA) * Bolus insulin * NovoLog per scale ACHS or Q6hrs while NPO * Goal Range: Low 120 mg/dL - High 160 mg/dL * Correction Factor: 30 mg/dL/unit * Nutritional / Prandial insulin per carb ratio of 1 unit per 10 grams CHO consumed PLAN FOR DISCHARGE: * TBD based on A1c
--- NOTE | 2020-07-27 19:37 | Communication Note ---
Date of Service: July 27, 2020 Attending Addendum: care coordinated with MALKA Marks please refer to her notes for full details, I agree with her notes patient seen and examined, records reviewed by myself as well on exam, patient seen resting in bed, sitting up, comfortable states she feels much better since admission abdominal pain resolved no headache, dizziness, chest pain, dyspnea, palpitations, dizziness no other symptoms VS noted and reviewed oriented x 3, not in distress, speaks in sentences with no effort nor accessory muscle use normal rate, regular rhythm, no murmurs clear breath sounds bilaterally non distended, soft, nontender no bipedal edema, erythema, warmth no neuro deficits WBC 8.1 Hg 15.9 K 2.8 Crea 0.7 HCO3 16 ASSESSMENT AND PLAN> UNCONTROLLED DM 2 HYPERGLYCEMIA acidosis improving Insulin SC per Pharmacy Glycemic Control no signs of infection at this time DM educator consulted HYPOKALEMIA will replace other diagnoses and plan of care as per MALKA Jauregui MD
--- NOTE | 2020-07-27 20:44 | History & Physical Report ---
Date of Service July 27, 2020 Assessment & Plan (1) Hyperglycemia: (2) Diabetes mellitus, type 2: -admit to med/surg -patient presenting with reports of fatigue x 10 days and abdominal pain/nausea that began today however resolved after patient had a bowel movement -history of diabetes, placed on insulin pump after gastric sleeve 03/2020. Patient self stopped insulin pump about 1 month after surgery and has not been checking blood sugars -labs show mild acidosis with blood sugar 335, acidosis improving after IVF -hgb a1c 9.5 01/2020 - update hgb a1c -glycemic pharmacy consult -patient reports she does not want to go back on insulin pump - agrees to insulin injections (3) Hypokalemia: -K+ 2.7 -replace, follow electrolytes -Mg+ 1.9 (4) Constipation: -CT showing moderate fecal retention -Start bowel regimen (5) Asthma: -Patient reports some intermittent shortness of breath recently, attributes it to usual reaction to cold weather -Saturating well on room air -Last used rescue inhaler 4 days ago -No wheezing on exam -Continue home inhalers (6) DVT prophylaxis: -SCDs, ambulate Admission and Anticipated Discharge Date Admission Date: July 27, 2020 History of Present Illness Chief Complaint: Abdominal pain, fatigue Primary Care Provider: Jama Torres MD 55-year-old female with PMH DM type II, asthma, RODO on CPAP, history of laparoscopic sleeve gastrectomy 03/2020, history of colon cancer s/p chemo and partial colectomy, and other problems listed below who presents the ED for evaluation of generalized fatigue and abdominal pain. Patient reports she has been feeling fatigued for the past 10 days. Today, while at work, patient reports that she had lower abdominal cramping that was radiating into her back. She also felt nauseous. Patient reports she has been constipated and has not had a bowel movement for 7 days until today. Bowel movement was formed and patient denies bright red bleeding per rectum or dark tarry stools. Patient reports improvement in abdominal symptoms since having a bowel movement. She also reports intermittent episodes of shortness of breath that she attributes to her asthma in the cold weather. Last use of rescue inhaler was about 4 days ago. Patient has history of DM type II, and after her sleeve gastrectomy she was placed on insulin pump. Patient reports she self stopped her insulin pump about 1 month after her surgery and has not been monitoring her blood sugars. Patient denies chest pain. No lightheadedness, dizziness, diaphoresis, syncopal events. She denies any other recent illnesses, fevers, chills. No urinary symptoms. In the ED, labs show K+ 2.7, HCO3 13, anion gap 21, glucose 335. CT ABD/pelvis shows moderate fecal retention. Patient was given IVF and potassium replacement. Allergies Allergy/AdvReac Type Severity Reaction Status Date / Time enoxaparin Allergy Intermediate HIVES Verified 07/27/20 11:19 heparin Allergy Intermediate HIVES Verified 07/27/20 11:19 doxycycline Allergy Mild Facial Verified 07/27/20 11:19 Flush nickel Allergy Mild RASH, Verified 07/27/20 11:19 REDNESS, ITCHY Home Medications Medication Instructions Recorded Confirmed Type Cartridge Stamped IR 1200 11/01/18 11/24/19 History albuterol sulfate 2 inha INH Q6H PRN #8 gm 11/01/18 07/27/20 Rx fluoxetine [Prozac] 10 mg PO QAM 11/01/18 07/27/20 History Breo Ellipta 1 inh INHALATION HS 11/24/19 07/27/20 History atorvastatin 20 mg PO HS 11/24/19 07/27/20 History cetirizine [Zyrtec] 10 mg PO HS 11/24/19 07/27/20 History calcium carbonate [Calcium 500] 500 mg PO BID 07/27/20 07/27/20 History montelukast 10 mg PO DAILY 07/27/20 07/27/20 History pediatric multivitamin 1 tab PO BID 07/27/20 07/27/20 History [Flintstones Multivitamin] Past Med/Surg History Medical History (Updated 07/27/20 @ 21:03 by MALKA Arango) Anxiety Asthma inhaler daily/prn Degenerative disc disease Depression Diabetes mellitus, type 2 Fatty liver History of colon cancer 08/2007--"s/p surgery and chemo" Hyperlipidemia Insulin pump in place Morbid obesity with BMI of 50.0-59.9, adult Osteoarthritis Sleep apnea cpap Surgical History H/O tubal ligation History of arthroscopy of left knee meniscus repair History of bladder surgery pt states "they went in to fix a fistula, but when they got in there all was scar tissue" History of carpal tunnel surgery bilt History of section x2 History of colonoscopy with polypectomy History of colostomy 09/16/2007 History of colostomy reversal 05/2008 History of esophagogastroduodenoscopy (EGD) History of hysterectomy History of incisional hernia repair x4 History of repair of right rotator cuff History of sleeve gastrectomy History of tooth extraction all upper S/P appendectomy S/P BSO (bilateral salpingo-oophorectomy) S/P laparoscopic cholecystectomy S/P laparotomy pt states she has had roughly 20 surgeries on her abdomen S/P partial colectomy 09/10/2007 @ [facility] had colostomy (colostomy failed and had to come back) Status post trigger finger release x3 to right hand Family History Father Family history of diabetes mellitus Mother Family history of diabetes mellitus Brother Family history of diabetes mellitus Sister Family history of diabetes mellitus Sister Family history of diabetes mellitus Brother Family history of diabetes mellitus Brother Family history of diabetes mellitus Brother Family history of diabetes mellitus Other COPD (chronic obstructive pulmonary disease) Emphysema of lung No family history of adverse response to anesthesia Social History Smoking Status: Former smoker Second Hand Exposure: No; Do You Dip or Chew Tobacco: No; Hx Alcohol Use: No Hx Substance Use: No Preferred Language: Setswana Communication Ability: Effective Regulatory Analyst Required: No Beliefs That Will Affect Care: None Current Living Situation: Spouse Other Information That Helps Us Care for You: No Feels Safe at Home: Yes Safety Concerns: Feels Safe At This Time Assistive Devices: CPAP and Denture - Upper Review of Systems Review of Systems: ROS per HPI, all other systems reviewed and negative Physical Exam Constitutional: WD/WN, vitals as above Eyes: PERRL, conjunctivae normal, anicteric sclerae ENMT: external ear and nose normal, oropharynx normal Respiratory: normal respiratory effort, lungs clear to auscultation Cardiovascular: Rate/Rhythm: regular rate and regular rhythm Vessels: normal peripheral pulses Extremities: no edema Gastrointestinal (Abdomen): normal bowel sounds, soft, nontender, no hepatosplenomegaly Musculoskeletal: no cyanosis or clubbing, extremities motor strength 5/5 Neurologic: PERRL, EOMI, accommodation nl, no face palsy, no dysarthria Psychiatric: A+Ox3, euthymic affect Results & Data Results & Data ([facility]) Vital Signs (Past 12 Hours) Vital Signs Temp Pulse Pulse Resp BP BP Pulse Ox 07/27/20 16:30 36.5 C 78 18 141/85 H 07/27/20 16:29 36.5 C 78 18 141/85 H 100 07/27/20 16:27 36.5 C 78 18 141/85 H 100 07/27/20 14:32 68 17 149/80 H 100 07/27/20 14:30 67 14 07/27/20 14:29 67 18 07/27/20 14:10 69 16 100 07/27/20 14:00 68 18 148/76 H 100 07/27/20 13:50 69 14 100 07/27/20 13:41 70 15 100 07/27/20 13:39 71 15 162/90 H 99 07/27/20 13:38 70 07/27/20 13:10 71 16 07/27/20 13:02 78 07/27/20 12:40 69 17 100 07/27/20 12:30 66 16 154/91 H 07/27/20 12:20 68 100 07/27/20 12:10 68 22 100 07/27/20 12:00 74 18 152/93 H 07/27/20 11:50 69 13 100 07/27/20 11:40 68 17 100 07/27/20 11:31 73 166/92 H 100 07/27/20 11:30 70 15 100 07/27/20 11:24 75 19 144/107 H 100 07/27/20 11:23 73 16 100 07/27/20 10:21 86 20 149/75 H 100 Laboratory Results Short CBC 07/27/20 07/27/20 07/27/20 Range/Units 11:30 11:30 16:34 WBC 8.17 (4.8-10.8) K/uL Hgb 15.9 (12.0-16.0) g/dL Hct 44.2 (37-47) % Plt Count 206 (130-400) K/uL Potassium 2.7 L 2.8 L (3.5-5.1) mmol/L Carbon Dioxide 13 L 16 L (21-32) mmol/L Anion Gap 21.0 H 15.0 H (3-11) Glucose 335 H* 260 H (70-99) mg/dl BMP 07/27/20 07/27/20 11:30 16:34 Sodium 131 L 135 L Potassium 2.7 L 2.8 L Chloride 97 L 104 Carbon Dioxide 13 L 16 L BUN 11 8 Creatinine 0.88 0.70 Glucose 335 H* 260 H Calcium 9.8 8.4 L Cardiac Enzymes 07/27/20 Range/Units 11:30 Troponin I < 0.015 (0-0.045) ng/ml Liver Function 07/27/20 Range/Units 11:30 Total Bilirubin 0.9 (0.2-1) mg/dl AST 8 L (15-37) U/L ALT 22 (12-78) U/L Alkaline Phosphatase 361 H (45-117) U/L Albumin 3.9 (3.4-5.0) gm/dl Diagnostic Findings CT ABD/PELVIS IMPRESSION: 1. No evidence of bowel obstruction. No evidence of free air 2. Postsurgical changes involving the stomach and colon 3. Moderate fecal retention. 4. Ventral hernia containing multiple small bowel loops. No current evidence of obstruction 5. Stable 23 mm hypodense abdominal wall lesion possibly representing a postsurgical seroma 6. Mild dilatation of the renal collecting systems and mild bladder distention. No calculi identified 7. No acute inflammatory changes CXR IMPRESSION: No acute cardiopulmonary findings Code Status & VTE Plan VTE Prophylaxis Plan VTE Prophylaxis will be ordered: Yes (1) Constipation Constipation type: unspecified constipation type Qualified Code(s): K59.00 - Constipation, unspecified
[2020-07-27] MEDS: CALCIUM CARBONATE 1250MG TAB PO SCH (20:59)
[2020-07-27] MEDS ORDERED: ATORVASTATIN 20 MG TAB PO SCH (21:00)
[2020-07-27] MEDS ORDERED: FLUTICASONE/VILANTEROL 200/25MCG 14 PUFFS/INHALER INH SCH (21:00)
[2020-07-27] MEDS: DOCUSATE SODIUM 100 MG CAP PO SCH (21:00)
[2020-07-27] MEDS ORDERED: CETIRIZINE HCL 10 MG TABLET PO SCH (21:00)
[2020-07-27] MEDS ORDERED: POLYETHYLENE (MIRALAX) 17 GM PACK PO SCH (21:00)
[2020-07-27 22:19] LABS: Calcium 9.1 mg/dl (8.5-10.1); Est GFR (African American) 113.8; Est GFR (Non-African American) 98.2
[2020-07-27] MEDS ORDERED: PNEUMOCOCCAL Polysaccharide Vaccine 25mcg/0.5mL vial/Syr IM ONE (23:15)
[2020-07-28] MEDS: INSULIN ASPART 100 UNITS/ML 3 ML PEN SC SCH ×2 (04:09→08:46)
[2020-07-28 06:14] LABS: Estimated Average Glucose 338 mg/dl; Hemoglobin A1C 13.4 % (4.5-5.6)
[2020-07-28 06:34] LABS: Hematocrit (blood only) 36.6 % (37-47); Hemoglobin 13.3 g/dL (12.0-16.0); Mean Corpuscular Hgb Conc 36.3 g/dL (32-36); Mean Corpuscular Volume 88.2 fL (80-100); Mean Platelet Volume 10.3 fL (7.4-10.4); Platelet Count 184 K/uL (130-400); RDW Coefficient of Variation 14.4 % (11.5-14.5); RDW Standard Deviation 46.4 fL (36.4-46.3); Red Blood Count 4.15 M/uL (4.2-5.4); White Blood Count 5.84 K/uL (4.8-10.8)
[2020-07-28 07:01] LABS: Albumin Level 2.8 gm/dl (3.4-5.0); Calcium 9.4 mg/dl (8.5-10.1); Creatinine Clr Calc Pharmacy 104.4 ml/min; Est GFR (African American) 117.9; Est GFR (Non-African American) 101.7; Magnesium 1.6 mg/dl (1.8-2.4); Potassium 3.1 mmol/L (3.5-5.1)
[2020-07-28 07:09] LABS: Albumin Globulin Ratio 0.9 (0.9-2); Bilirubin,Total 0.8 mg/dl (0.2-1); Globulin 3.2 gm/dl (2.5-4.0)
[2020-07-28] MEDS: DOCUSATE SODIUM 100 MG CAP PO SCH (08:49)
[2020-07-28] MEDS: CALCIUM CARBONATE 1250MG TAB PO SCH (08:49)
[2020-07-28] MEDS ORDERED: MULTIVITAMIN CHEWABLE TAB PO SCH (09:00)
[2020-07-28] MEDS ORDERED: MONTELUKAST SODIUM 10 MG TABLET PO SCH (09:00)
[2020-07-28] MEDS ORDERED: FLUoxetine HCL 10 MG CAP PO SCH (09:00)
[2020-07-28] MEDS ORDERED: MAGNESIUM OXIDE 400 MG TAB PO SCH (09:30)
[2020-07-28] MEDS ORDERED: POTASSIUM CHLORIDE CRTAB 20 MEQ TABCR PO SCH (09:30)
--- NOTE | 2020-07-28 11:40 | Pharmacy Report ---
Pharmacy Glycemic Short Note 2 - Date of Service July 28, 2020 - Glycemic Short BSG Results (Last 24 hours): 07/27/20 07/27/20 07/27/20 11:30 16:34 17:09 Glucose 335 H* 260 H POC Glucose 250 H 07/27/20 07/27/20 07/27/20 20:19 21:47 23:47 Glucose 210 H POC Glucose 244 H 186 H 07/28/20 07/28/20 07/28/20 04:00 06:25 08:13 Glucose 170 H POC Glucose 182 H 166 H OUTPATIENT ANTIDIABETIC REGIMEN: * N/A; was on an insulin pump for T2DM but has not been using this for the past month * Pump Settings: * Basal 0.5 units/hr = 12 units/day * CF = 30mg/dl/unit * CR = 1 unit for every 20g CHO consumed * A1c = 13.4% ASSESSMENT: 07/28 * Patient received total of 28 units of insulin yesterday, of which 18 units were basal insulin * Fasting BSG 166 mg/dL - plan to continue with basal insulin. Had received basal at dinner time yesterday, will gradually adjust times to AM time for easier adjustment. Will schedule with lunch today * Lunch BSG trending upward, plan to tighten CF/CR 07/27 * 55yo T2DM female admitted with hyperglycemia; DKA. Pt with significant weight loss over the past few months s/p gastric sleeve surgery. Pt has not been using any antidiabetic agents for the past month * Pt admitted with moderate DKA and hypokalemia. Repleting K+ prior to initiating IV insulin infusion. * Labs and BSGs responded well to fluids. Will start with SQ basal bolus insulin regimen similar to outpatient pump settings and titrate based on BSG trends. PLAN FOR INPATIENT GLYCEMIC CONTROL: * Basal insulin * Lantus 18 units daily * Bolus insulin * NovoLog per scale ACHS or Q6hrs while NPO * Goal Range: Low 120 mg/dL - High 160 mg/dL * Correction Factor: 20 mg/dL/unit * Nutritional / Prandial insulin per carb ratio of 1 unit per 6 grams CHO consumed PLAN FOR DISCHARGE: * A1c of 13.4% on admission, will need insulin at time of discharge * Will follow along to determine insulin needs
[2020-07-28] MEDS ORDERED: INSULIN ASPART 100 UNITS/ML 3 ML PEN SC SCH (12:00)
--- NOTE | 2020-07-28 12:32 | Hospitalist Progress Note ---
Date of Service July 28, 2020 Assessment & Plan (1) Hyperglycemia: (2) Diabetes mellitus, type 2: per MALKA Marks's notes: -patient presenting with reports of fatigue x 10 days and abdominal pain/nausea that began today however resolved after patient had a bowel movement -history of diabetes, placed on insulin pump after gastric sleeve 03/2020. Patient self stopped insulin pump about 1 month after surgery and has not been checking blood sugars -labs show mild acidosis with blood sugar 335, acidosis improving after IVF -hgb a1c 9.5 01/2020 - update hgb a1c -glycemic pharmacy consult -patient reports she does not want to go back on insulin pump - agrees to insulin injections 07/28/20 A1c 13.4 HCO3 improved from 13 to 17 anion gap also improved from 21 to 14 blood glucose 160-170s feeling better now discharge plan: Insulin Lantus 14 units at HS Novolog with meals per sliding scale Goal Range: Low 120 mg/dL - High 160 mg/dL Correction Factor: 30 mg/dL/unit Nutritional / Prandial insulin per carb ratio of 1 unit per 10 grams CHO consumed follow up with Dr. Torres next week (3) Hypokalemia: Hypomagenesemia -K+ 2.7 --> 3.1 -Mg+ 1.6 - given K and Mg supplement please repeat BMP and Mg next week at PCP office (4) Constipation: -CT showing moderate fecal retention - (+) BM - discharge on Miralax and Dulcolax (5) Asthma: - stable - Continue home inhalers (6) DVT prophylaxis: -SCDs, ambulate Disposition d/c home today ff up with PCP next week plan of care discussed with patient in detail and at length all questions answered she is understanding, agreeable, comfortable with the plan of care Admission and Anticipated Discharge Date Admission Date: July 27, 2020 Subjective ff up for uncontrolled DM etc seen resting in bed, comfortable in good spirits states she feels much better overall no abdominal pain ,nausea (+) BM yesterday no dizziness, headache, chest pain, dyspnea, palpitations ambulating with no problems no other symptoms Review of Systems Review of Systems: All systems reviewed & are unremarkable except as noted in Subjective Physical Exam Physical Exam: General- oriented x 3, not in distress, speaks in sentences with no effort or accessory muscle use Eyes- anicteric Neck- no JVD Lungs- clear breath sounds bilaterally, no rales/wheezes Heart- normal rate, regular rhythm; no murmurs Abdomen- normal bowel sounds, nondistended, soft, nontender Extremities- no pretibial edema, no calf tenderness Neuro- alert, oriented x 3; no gross focal neurologic deficits Skin- warm & dry Results & Data Results & Data ([facility]) Vital Signs (Past 12 Hours) Vital Signs Temp Pulse Resp BP Pulse Ox 07/28/20 07:41 36.9 C 66 16 117/65 97 Laboratory Results Laboratory Results - last 24 hr 07/27/20 07/27/20 07/27/20 11:30 11:30 12:00 WBC RBC Hgb Hct MCV MCH MCHC RDW Std Deviation RDW Coeff of Filippo Plt Count MPV Sodium Potassium Chloride Carbon Dioxide Anion Gap BUN Creatinine Est Cr Clr Drug Dosing Est GFR ( Amer) Est GFR (Non-Af Amer) BUN/Creatinine Ratio Glucose POC Glucose Estimat Average Glucose 338 Hemoglobin A1c 13.4 H Calcium Magnesium Total Bilirubin AST ALT Alkaline Phosphatase Total Protein Albumin Globulin Albumin/Globulin Ratio Vitamin B12 1280 H Folate 12.90 Lyme Disease IgG Ab Negative Lyme Disease IgM Ab Negative COVID-19 Eval Order SARS-CoV-2, RNA, NAAT 07/27/20 07/27/20 07/27/20 14:45 14:45 16:34 WBC RBC Hgb Hct MCV MCH MCHC RDW Std Deviation RDW Coeff of Filippo Plt Count MPV Sodium 135 L Potassium 2.8 L Chloride 104 Carbon Dioxide 16 L Anion Gap 15.0 H BUN 8 Creatinine 0.70 Est Cr Clr Drug Dosing 94.0 Est GFR ( Amer) 113.8 Est GFR (Non-Af Amer) 98.2 BUN/Creatinine Ratio 10.9 Glucose 260 H POC Glucose Estimat Average Glucose Hemoglobin A1c Calcium 8.4 L Magnesium Total Bilirubin AST ALT Alkaline Phosphatase Total Protein Albumin Globulin Albumin/Globulin Ratio Vitamin B12 Folate Lyme Disease IgG Ab Lyme Disease IgM Ab COVID-19 Eval [facility] SARS-CoV-2, RNA, NAAT NEGATIVE 07/27/20 07/27/20 07/27/20 17:09 20:19 21:47 WBC RBC Hgb Hct MCV MCH MCHC RDW Std Deviation RDW Coeff of Filippo Plt Count MPV Sodium 133 L Potassium 3.0 L Chloride 102 Carbon Dioxide 15 L Anion Gap 16.0 H BUN 7 Creatinine 0.70 Est Cr Clr Drug Dosing 94.0 Est GFR ( Amer) 113.8 Est GFR (Non-Af Amer) 98.2 BUN/Creatinine Ratio 10.0 Glucose 210 H POC Glucose 250 H 244 H Estimat Average Glucose Hemoglobin A1c Calcium 9.1 Magnesium Total Bilirubin AST ALT Alkaline Phosphatase Total Protein Albumin Globulin Albumin/Globulin Ratio Vitamin B12 Folate Lyme Disease IgG Ab Lyme Disease IgM Ab COVID-19 Eval Order SARS-CoV-2, RNA, NAAT 07/27/20 07/28/20 07/28/20 23:47 04:00 06:25 WBC 5.84 RBC 4.15 L Hgb 13.3 Hct 36.6 L MCV 88.2 MCH 32.0 MCHC 36.3 H RDW Std Deviation 46.4 H RDW Coeff of Filippo 14.4 Plt Count 184 MPV 10.3 Sodium Potassium Chloride Carbon Dioxide Anion Gap BUN Creatinine Est Cr Clr Drug Dosing Est GFR ( Amer) Est GFR (Non-Af Amer) BUN/Creatinine Ratio Glucose POC Glucose 186 H 182 H Estimat Average Glucose Hemoglobin A1c Calcium Magnesium Total Bilirubin AST ALT Alkaline Phosphatase Total Protein Albumin Globulin Albumin/Globulin Ratio Vitamin B12 Folate Lyme Disease IgG Ab Lyme Disease IgM Ab COVID-19 Eval Order SARS-CoV-2, RNA, NAAT 07/28/20 07/28/20 07/28/20 06:25 08:13 12:05 WBC RBC Hgb Hct MCV MCH MCHC RDW Std Deviation RDW Coeff of Filippo Plt Count MPV Sodium 136 Potassium 3.1 L Chloride 105 Carbon Dioxide 17 L Anion Gap 14.0 H BUN 8 Creatinine 0.63 Est Cr Clr Drug Dosing 104.4 Est GFR ( Amer) 117.9 Est GFR (Non-Af Amer) 101.7 BUN/Creatinine Ratio 12.0 Glucose 170 H POC Glucose 166 H 225 H Estimat Average Glucose Hemoglobin A1c Calcium 9.4 Magnesium 1.6 L Total Bilirubin 0.8 AST 8 L ALT 18 Alkaline Phosphatase 273 H Total Protein 6.0 L D Albumin 2.8 L Globulin 3.2 Albumin/Globulin Ratio 0.9 Vitamin B12 Folate Lyme Disease IgG Ab Lyme Disease IgM Ab COVID-19 Eval Order SARS-CoV-2, RNA, NAAT (1) Constipation Constipation type: unspecified constipation type Qualified Code(s): K59.00 - Constipation, unspecified
[2020-07-28] MEDS ORDERED: INSULIN GLARGINE SOLOSTAR 100 UNITS/ML 3 ML PEN SC ONE (12:45)
--- NOTE | 2020-07-28 13:04 | Discharge Summary ---
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 Patient reports she has been feeling fatigued for the past 10 days. Today, while at work, patient reports that she had lower abdominal cramping that was radiating into her back. She also felt nauseous. Patient reports she has been constipated and has not had a bowel movement for 7 days until today. Bowel movement was formed and eden sullivan denies bright red bleeding per rectum or dark tarry stools. Patient reports improvement in abdominal symptoms since having a bowel movement. She also reports intermittent episodes of shortness of breath that she attributes to her asthma in the cold weather. Last use of rescue inhaler was about 4 days ago. Patient has history of DM type II, and after her sleeve gastrectomy she was placed on insulin pump. Patient reports she self stopped her insulin pump about 1 month after her surgery and has not been monitoring her blood sugars. Patient denies chest pain. No lightheadedness, dizziness, diaphoresis, syncopal events. She denies any other recent illnesses, fevers, chills. No urinary symptoms. In the ED, labs show K+ 2.7, HCO3 13, anion gap 21, glucose 335. CT ABD/pelvis shows moderate fecal retention. Patient was given IVF and potassium replacement. Admission Exam Per Admitting Provider Constitutional: WD/WN, vitals as above Eyes: PERRL, conjunctivae normal, anicteric sclerae ENMT: external ear and nose normal, oropharynx normal Respiratory: normal respiratory effort, lungs clear to auscultation Cardiovascular: Rate/Rhythm: regular rate and regular rhythm Vessels: normal peripheral pulses Extremities: no edema Gastrointestinal (Abdomen): normal bowel sounds, soft, nontender, no hepatosplenomegaly Musculoskeletal: no cyanosis or clubbing, extremities motor strength 5/5 Neurologic: PERRL, EOMI, accommodation nl, no face palsy, no dysarthria Psychiatric: A+Ox3, euthymic affectx Principal Diagnosis UNCONTROLLED HYPERGLYCEMIA Discharge Exam General- oriented x 3, not in distress, speaks in sentences with no effort or accessory muscle use Eyes- anicteric Neck- no JVD Lungs- clear breath sounds bilaterally, no rales/wheezes Heart- normal rate, regular rhythm; no murmurs Abdomen- normal bowel sounds, nondistended, soft, nontender Extremities- no pretibial edema, no calf tenderness Neuro- alert, oriented x 3; no gross focal neurologic deficits Skin- warm & dry Discharge Data Allergies Allergy/AdvReac Type Severity Reaction Status Date / Time enoxaparin Allergy Intermediate HIVES Verified 07/27/20 11:19 heparin Allergy Intermediate HIVES Verified 07/27/20 11:19 doxycycline Allergy Mild Facial Verified 07/27/20 11:19 Flush nickel Allergy Mild RASH, Verified 07/27/20 11:19 REDNESS, ITCHY Consultations 07/27/20 14:32 ED Decision to Admit Stat 07/27/20 16:24 Consult Case Management - Discharge Planning Routine Ordered Studies 07/27/20 10:36 CT abd pelvis oral and IV con Stat Lower chest: The heart is normal in size and configuration, without pericardial effusion. The lung bases and pleural spaces are clear. Liver: There is borderline hepatic steatosis. No focal masses are visualized. The portal and hepatic veins appear patent Gallbladder: Surgically absent Spleen: Mildly enlarged measuring 12.8 cm Pancreas: Unremarkable. Adrenal glands: Unremarkable. Kidneys: There is mild dilatation of both collecting systems. No solid renal masses are visualized. No ureteral calculi are visualized. Bowel: There are postsurgical changes of a gastric sleeve procedure. There are postsurgical changes of a left colonic anastomosis. There are no transition zones indicate bowel obstruction. There is moderate fecal retention. There is no evidence of acute diverticulitis. By history the appendix is surgically absent. There is a ventral hernia containing multiple small bowel loops. No obstructive changes are evident is a stable low-density 23 mm lesion within the midline abdominal wall near the level of the umbilicus. This remains unchanged from the prior study and may represent a postsurgical seroma. There are small fat- containing umbilical hernia Peritoneum: There is no intraperitoneal free air or abdominal ascites. Vasculature: The abdominal aorta is normal in course and caliber. Adenopathy: None. Pelvic viscera: The uterus appears surgically absent. The bladder is mildly dis tended Skeletal structures: 0 IMPRESSION: 1. No evidence of bowel obstruction. No evidence of free air 2. Postsurgical changes involving the stomach and colon 3. Moderate fecal retention. 4. Ventral hernia containing multiple small bowel loops. No current evidence of obstruction 5. Stable 23 mm hypodense abdominal wall lesion possibly representing a postsurgical seroma 6. Mild dilatation of the renal collecting systems and mild bladder distention. No calculi identified 7. No acute inflammatory changes Hospital Course (1) Hyperglycemia: (2) Diabetes mellitus, type 2: per MALKA Marks's notes: -patient presenting with reports of fatigue x 10 days and abdominal pain/nausea that began today however resolved after patient had a bowel movement -history of diabetes, placed on insulin pump after gastric sleeve 03/2020. Patient self stopped insulin pump about 1 month after surgery and has not been checking blood sugars -labs show mild acidosis with blood sugar 335, acidosis improving after IVF -hgb a1c 9.5 01/2020 - update hgb a1c -glycemic pharmacy consult -patient reports she does not want to go back on insulin pump - agrees to insulin injections 07/28/20 A1c 13.4 HCO3 improved from 13 to 17 anion gap also improved from 21 to 14 blood glucose 160-170s feeling better now discharge plan: Insulin L[place]us [facility] [place] [facility] meals per sliding scale Goal Range: Low 120 mg/dL - High 160 mg/dL Correction Factor: 30 mg/dL/unit Nutritional / Prandial insulin per carb ratio of 1 unit per 10 grams CHO consumed follow up with Dr. Torres next week (3) Hypokalemia: Hypomagenesemia -K+ 2.7 --> 3.1 -Mg+ 1.6 - given K and Mg supplement please repeat BMP and Mg next week at PCP office (4) Constipation: -CT showing moderate fecal retention - (+) BM - discharge on Miralax and Dulcolax (5) Abnormal CT of the abdomen: IMPRESSION: 1. No evidence of bowel obstruction. No evidence of free air 2. Postsurgical changes involving the stomach and colon 3. Moderate fecal retention. 4. Ventral hernia containing multiple small bowel loops. No current evidence of obstruction 5. Stable 23 mm hypodense abdominal wall lesion possibly representing a postsurgical seroma 6. Mild dilatation of the renal collecting systems and mild bladder distention. No calculi identified 7. No acute inflammatory changes Spleen: Mildly enlarged measuring 12.8 cm -- further work up and ff up as outpatient (6) Asthma: - stable - Continue home inhalers (7) DVT prophylaxis: -SCDs, ambulate Disposition d/c home today ff up with PCP next week plan of care discussed with patient in detail and at length all questions answered she is understanding, agreeable, comfortable with the plan of care Total Time Total Time Spent Total Time Spent (In Minutes): 50 minutes Discharge Plan Discharge Items Patient Disposition: Home - Self-Care Reason For Visit: HYPOKALEMIA, HYPERGLYCEMIA Discharge Diagnosis: UNCONTROLLED DIABETES MELLITUS Activity: Resume your previous activity Non-emergency contact: Primary Care Provider Call non-emergency contact if: you have any medication questions, your symptoms worsen, your pain is not controlled, your pain is worsening, your pain is unusual for you, your pain is concerning for you and you have a fever Follow-up/Referrals: Jama Torres MD [Primary Care Provider] - 08/02/20 11:20 am Diet: Carb Consistent or DM2 and Heart Healthy Addtl Attending Provider Instructions: PLEASE REVIEW YOUR NEW MEDICATION LIST AND FOLLOW INSTRUCTIONS CAREFULLY. INSULIN LANTUS AND NOVOLOG POTASSIUM AND MAGNESIUM SUPPLEMENTS DOCUSATE AND MIRALAX- STOOL SOFTENERS PLEASE USE NOVOLOG (3X A DAY WITH MEALS) USING THE FOLLOWING SLIDING SCALE: Goal Range: Low 120 mg/dL - High 160 mg/dL Correction Factor: 30 mg/dL/unit Nutritional / Prandial insulin per carb ratio of 1 unit per 10 grams CHO consumed TAKE POTASSIUM RICH FOODS DAILY (BANANAS, TOMATOES, POTATOES, ORANGES). DRINK PLENTY OF FLUIDS. CALL PRIMARY CARE PHYSICIAN OR RETURN TO THE ER IMMEDIATELY IF WITH RECURRENCE /WORSENING OF SYMPTOMS. FOLLOW UP WITH PRIMARY CARE PHYSICIAN IN 1 WEEK. Pending Studies at Discharge: Yes Studies:: REPEAT BLOODWORK (BASIC METABOLIC PANEL AND MAGNESIUM) ON FOLLOW UP WITH PRIMARY CARE PHYSICIAN NEXT WEEK. Stand-Alone Forms: My [facility] [employer], Smoking Cessation Medications and DC Order Prescriptions: New potassium chloride [Klor-Con M20] 20 mEq Tablet,Er Particles/Crystals 40 meq PO DAILY 10 Days Qty: 20 RF: 0 docusate sodium 100 mg Capsule 100 mg PO BID Qty: 60 RF: 2 magnesium oxide 400 mg (241.3 mg magnesium) Tablet 400 mg PO BID Qty: 20 RF: 0 polyethylene glycol 3350 [Miralax] 17 gram Powder In Packet 17 g PO HS Qty: 30 RF: 2 insulin aspart U-100 [Novolog Flexpen U-100 Insulin] 100 unit/mL (3 mL) Insulin Pen 1 unit SC UD Qty: 5 RF: 2 Lantus Solostar U-100 Insulin 100 unit/mL (3 mL) insulin pen 14 unit subcut HS Qty: 15 RF: 2 Continued fluoxetine [Prozac] 10 mg capsule 10 mg PO QAM RF: 0 albuterol sulfate 90 mcg/actuation HFA aerosol inhaler 2 inha INH Q6H PRN (Reason: shortness of breath or wheezing) Qty: 8 RF: 0 atorvastatin 20 mg Tablet 20 mg PO HS RF: 0 Breo Ellipta 200-25 mcg/dose Blister With Device 1 inh INHALATION HS RF: 0 cetirizine [Zyrtec] 10 mg Tablet 10 mg PO HS RF: 0 montelukast 10 mg tablet 10 mg PO DAILY RF: 0 Flintstones Multivitamin Tablet,Chewable 1 tab PO BID RF: 0 calcium carbonate [Calcium 500] 500 mg calcium (1,250 mg) Tablet 500 mg PO BID RF: 0 Discontinued (DME) Cartridge Stamped IR 1200 cartridge RF: 0 Discharge Orders: Discharge Order (Routine); Ordered 07/28/20 Ordered By: Ahmet Jauregui Admission Data Admit Date/Time: 07/27/20 14:42 Attending Provider: Ahmet Jauregui Admit Provider: Ahmet Jauregui Primary Care Provider: Jama Torres Other Providers: Ahmet Jauregui
[2020-07-29] MEDS ORDERED: INSULIN ASPART 100 UNITS/ML 3 ML PEN SC SCH
== END 2020-07-28 14:57 | disposition home or self-care (01) ==
LOC: ED 10:17 → 3N 10:17